=== PATIENT | male | born 1950 | race Caucasian/White ===

== ENCOUNTER 2022-05-06 10:13 | Emergency (ER) | payer MEDICARE, BC, SELFPAY ==
[2022-05-06] VITALS (39 sets, daily range): BP systolic 126–171; BP diastolic 65–98; PULSE 67–85; RESP 12–26; TEMP 36.8; O2SAT 85–99; BMI 24.3
--- NOTE | 2022-05-06 10:17 | CT_ITS ---
WS: [id number] CT HEAD TECHNIQUE: Noncontrast CT of the head obtained from the skullbase to the vertex. CLINICAL INFORMATION: AMS COMPARISON: None. DLP: 1106.[address] scans at [facility] use at least one of these dose optimization techniques: automated e xposure control; mA and/or kV adjustment per patient size (includes targeted exams where dose is matc hed to clinical indication); or iterative reconstruction. FINDINGS: No evidence of intracranial hemorrhage or mass effect. Ventricular system and basal cisterns are sánchez nt. Mild small vessel changes with mild parenchymal volume loss. Encephalomalacia in the bilateral in ferior frontal lobes likely due to prior trauma. Vascular calcification. Slight encephalomalacia RIGHT greater than LEFT anterior temporal lobes also likely due to prior trau ma. Paranasal sinuses and mastoid air cells are well aerated. .Normal visualized soft tissues. CT/CT head wo con* [id number] IMPRESSION: 1. No evidence of intracranial hemorrhage or mass effect. 2. Mild small vessel changes. Mild parenchymal volume loss. 3. Chronic encephalomalacia in the anterior temporal lobes bilaterally RIGHT g reater than LEFT and inferior frontal lobes likely due to prior trauma. 4. No acute intracranial findings.
--- NOTE | 2022-05-06 10:17 | XR_ITS ---
WS: [id number] Exam: XR chest 1V portable [id number] Date/Time of Exam: 05/06/2022 10:17 AM Reason For Exam: dyspnea/cough No priors. Findings: The lungs are clear and fully expanded. Costophrenic angles are sharp. No infiltrates. Bronchovascula r relief appears normal. Cardiac silhouette is unremarkable. Bony elements are intact. XR/XR chest 1V portable [id number] IMPRESSION: Unremarkable chest radiograph.
[2022-05-06 10:44] LABS: Basophils % 0.4 %; Eosinophils # 0.1 10^3/uL (0.0-0.8); Eosinophils % 1.1 %; Hematocrit 37.6 % (42.0-52.0); Hemoglobin 12.4 g/dL (11.7-16.6); Lymphocytes # 0.5 10^3/uL (0.8-4.8); Mean Platelet Volume 8.9 fL (7.4-10.4); Monocytes # 0.5 10^3/uL (0.2-0.9); Monocytes % 4.8 %; Neutrophils # 8.26 10^3/uL (1.8-7.7); Neutrophils % 88.5 %; Nucleated Red Blood Cells % 0 %; Platelet Count 347 10^3/cmm (130-400); Red Blood Count 4.13 10^6/uL (4.1-5.3); Red Cell Distribution Width 11.6 % (12.1-15.1); White Blood Count 9.3 10^3/uL (4.0-10.0)
[2022-05-06 10:46] LABS: ABG PCO2 48.9 mmHg (35-45); ABG PH Result 7.42 (7.35-7.45); Arterial Blood Gas Hematocrit 40.4 % (42-52); Base Excess ABG 5.7 mmol/L (-2.0-2.0); Blood Gas Allen Test Pos; Blood Gas Sample Type Arterial; HCO3 ABG 31.4 mmol/L (22-26); HGB O2 Sat 93.7 % (95-100); Ionized Calcium Level - ABG 1.3 mmol/L (1.1-1.4); Methemoglobin 0.3 % (0.4-1.5); Oxygen Saturation ABG 94.9; PO2 ABG 74.1 mmHg (80.0-100.0); Potassium Level - ABG 4.5 mmol/L (3.5-5.0); Total Hemoglobin 13.2 g/dL (14-18)
--- NOTE | 2022-05-06 10:46 | W.ED.AMS ---
HPI - Altered Mental Status General: Chief Complaint: Altered Mental Status Stated Complaint: AMS Time Seen by Provider: 05/06/22 10:14 Source: family Mode of arrival: EMS History of Present Illness: 71-year-old male presents emergency room with altered mental status. He recently was [facility]: Old records we obtained later had a similar presentation there is no acute medical condition is felt to be Dr. cognitive changes and dementia he was admitted to the geriatric psych unit and after 6 days discharged home with the . Since going home he has not done any better and she is having difficult time managing him they contacted EMS to have him reevaluated today. On arrival here he is not able to contribute any to history but he has no evidence of acute pain or problems he denies any chest or abdominal pain. MD complaint: altered mental status and confusion Onset (ago): week(s) Timing confirmed by: spouse Severity: moderate Review of Systems General: Reports: ROS unobtainable due to mental status PFS ED PFSH: Medical History (Updated 05/06/22 @ 13:45 by Bhargav Engle DO) Dementia Social History (Updated 05/06/22 @ 13:45 by Bhargav Engle DO) Smoking and tobacco status: never smoked Alcohol intake: never Physical Exam Const: EXAM LIMITATIONS: altered mental status NUTRITIONAL APPEARANCE: thin ORIENTATION/CONSCIOUSNESS: Yes awake HENMT: COMMON NORMALS: normocephalic and atraumatic HEAD & SCALP: normocephalic and atraumatic Eye: COMMON NORMALS: Equal, round and reactive pupils present, EOMs intact bilaterally, conjunctivae normal and no scleral icterus CONJUNCTIVA: Yes conjunctivae normal PUPIL: Yes Equal, round and reactive pupils present Neck/C-Spine: COMMON NORMALS: full ROM, no lymphadenopathy and no JVD Resp: COMMON NORMALS: normal respiratory effort, No retractions, No use of accessory muscles and clear to auscultation bilaterally AUSCULTATION: clear to auscultation bilaterally Cardio: COMMON NORMALS: no JVD, regular rate and regular rhythm RATE: regular rate RHYTHM: regular rhythm HEART SOUNDS: no murmurs GI: COMMON NORMALS: Normal to inspection, nondistended, normoactive bowel sounds present, Soft to palpation, non-tender, No hepatosplenomegaly present and no masses PALPATION: Yes Soft to palpation, No Tenderness to palpation present (GI), No Guarding due to palpation present (GI) and Yes No hepatosplenomegaly present : COMMON NORMALS: Yes no CVA tenderness BLADDER/KIDNEY EXAM: Yes no CVA tenderness Back/Pelvis: COMMON NORMALS: no CVA tenderness Course Vital Signs: Vital signs: Vital Signs Temperature 98.2 F 05/06/22 10:14 Pulse Rate 74 05/06/22 12:25 Respiratory Rate 17 05/06/22 12:25 Blood Pressure 138/65 05/06/22 12:25 Pulse Oximetry 99 05/06/22 12:25 Oxygen Delivery Me thod 05/06/22 10:58 MDM - Altered Mental Status Medical Decision Making Old records reviewed from [place]. Patient presented with a similar presentation of the low that back was admitted to mental [facility]. Reviewing the discharge summary of it thought she could manage patient at home has not gone well for her at this point from her report today. He does not have any acute medical condition going on at this time suspect he will need a higher level of care. She will follow-up with her primary care doctor to discuss options. No evidence of stroke or infection at this time. Medical Records I reviewed the patient's medical records. Lab Data I reviewed the patient's lab results. 05/06/22 10:36 05/06/22 10:36 Radiology Impressions Chest X-Ray 05/06/22 10:17 IMPRESSION: Unremarkable chest radiograph. Head CT 05/06/22 10:17 IMPRESSION: 1. No evidence of intracranial hemorrhage or mass effect. 2. Mild small vessel changes. Mild parenchymal volume loss. 3. Chronic encephalomalacia in the anterior temporal lobes bilaterally RIGHT greater than LEFT and inferior frontal lobes likely due to prior trauma. 4. No acute intracranial findings. Laboratory Results WBC 9.3 10^3/uL (4.0-10.0) 05/06/22 10:36 RBC 4.13 10^6/uL (4.1-5.3) 05/06/22 10:36 Hgb 12.4 g/dL (11.7-16.6) 05/06/22 10:36 Hct 37.6 % (42.0-52.0) L 05/06/22 10:36 MCV 91.0 fl (80-94) 05/06/22 10:36 MCH 30.0 pg (28.0-34.0) 05/06/22 10:36 MCHC 33.0 g/dL (30.0-36.0) 05/06/22 10:36 RDW 11.6 % (12.1-15.1) L 05/06/22 10:36 Plt Count 347 10^3/cmm (130-400) 05/06/22 10:36 MPV 8.9 fL (7.4-10.4) 05/06/22 10:36 Neut % (Auto) 88.5 % 05/06/22 10:36 Lymph % (Auto) 5.0 % 05/06/22 10:36 [place] % (Auto) 4.8 % 05/06/22 10:36 Eos % (Auto) 1.1 % 05/06/22 10:36 Baso % (Auto) 0.4 % 05/06/22 10:36 Neut # (Auto) 8.26 10^3/uL (1.8-7.7) H 05/06/22 10:36 Lymph # (Auto) 0.5 10^3/uL (0.8-4.8) L 05/06/22 10:36 [place] # (Auto) 0.5 10^3/uL (0.2-0.9) 05/06/22 10:36 Eos # (Auto) 0.1 10^3/uL (0.0-0.8) 05/06/22 10:36 Baso # (Auto) 0.0 10^3/uL (0.0-0.1) 05/06/22 10:36 Nucleated RBC % (auto) 0 % 05/06/22 10:36 Nucleated RBCs # 0.0 /100WBC 05/06/22 10:36 Specimen Type Arterial 05/06/22 10:33 Sample Site Radial, left 05/06/22 10:33 ABG pH 7.42 (7.35-7.45) 05/06/22 10:33 ABG pCO2 48.9 mmHg (35-45) H 05/06/22 10:33 ABG pO2 74.1 mmHg (80.0-100.0) L 05/06/22 10:33 ABG HCO3 31.4 mmol/L (22-26) H 05/06/22 10:33 ABG O2 Saturation 94.9 05/06/22 10:33 ABG Base Excess 5.7 mmol/L (-2.0-2.0) H 05/06/22 10:33 [place] Test Pos 05/06/22 10:33 A-a O2 Gradient 2.0 mmHg (5-10) L 05/06/22 10:33 Hematocrit 40.4 % (42-52) L 05/06/22 10:33 Hgb O2 Saturation 93.7 % (95-100) L 05/06/22 10:33 Carboxyhemoglobin 1.0 %THgb (0.4-20.1) 05/06/22 10:33 Methemoglobin 0.3 % (0.4-1.5) L 05/06/22 10:33 Total Hemoglobin 13.2 g/dL (14-18) L 05/06/22 10:33 Sodium 142.0 mmol/L (131-143) 05/06/22 10:33 Potassium 4.5 mmol/L (3.5-5.0) 05/06/22 10:33 Glucose 111.0 mg/dL (70-115) 05/06/22 10:33 Ionized Calcium 1.3 mmol/L (1.1-1.4) 05/06/22 10:33 O2 Delivery Device Room air 05/06/22 10:33 FiO2 21.0 % 05/06/22 10:33 Foil Cutter ID [place] 05/06/22 10:33 Sodium 140 mmol/L (136-145) 05/06/22 10:36 Potassium 4.1 mmol/L (3.5-5.1) 05/06/22 10:36 Chloride 100 mmol/L (98-107) 05/06/22 10:36 Carbon Dioxide 30 mmol/L (22-29) H 05/06/22 10:36 Anion Gap 14.1 (5-19) 05/06/22 10:36 BUN 28 mg/dL (8-23) H 05/06/22 10:36 Creatinine 0.8 mg/dL (0.7-1.2) 05/06/22 10:36 GFR Calculation Not Reportable 05/06/22 10:36 Glucose 109 mg/dL (65-115) 05/06/22 10:36 Calculated Osmolality 296 mOsm/kg (285-295) H 05/06/22 10:36 Lactic Acid 1.3 mmol/L (0.5-2.2) 05/06/22 10:36 Calcium 9.7 mg/dL (8.5-10.5) 05/06/22 10:36 Total Bilirubin 0.2 mg/dL (0.15-1.2) 05/06/22 10:36 AST 27 U/L (0-40) 05/06/22 10:36 ALT 15 U/L (0-41) 05/06/22 10:36 Alkaline Phosphatase 112 U/L (40-130) 05/06/22 10:36 Creatine Kinase 88 U/L (39-308) 05/06/22 10:36 Troponin T Baseline 12 ng/L (0-15) 05/06/22 10:36 Troponin T 120 Minute 11.14 ng/L (0-15) 05/06/22 12:42 Delta Troponin T -0.96 ABS# (0-10) L 05/06/22 12:42 Total Protein 7.8 g/dL (6.6-8.7) 05/06/22 10:36 Albumin 3.8 g/dL (3.5-5.2) 05/06/22 10:36 Globulin 4.0 g/dL (1.3-4.6) 05/06/22 10:36 Urine Color Yellow (Yellow) 05/06/22 11:32 Urine Appearance Clear (CLEAR) 05/06/22 11:32 Urine pH 5 (5-7) 05/06/22 11:32 Ur Specific [place] 1.020 (1.005-1.030) 05/06/22 11:32 Urine Protein Trace (Negative) 05/06/22 11:32 Urine Glucose (UA) Norm (Normal) 05/06/22 11:32 Urine Ketones 1+ (Negative) H 05/06/22 11:32 Urine Blood Neg (Negative) 05/06/22 11:32 Urine Nitrate Negative (Negative) 05/06/22 11:32 Urine Bilirubin Neg (Negative) 05/06/22 11:32 Urine Urobilinogen Norm mg/dL (Negative) 05/06/22 11:32 Ur Leukocyte Esterase Negative (Negative) 05/06/22 11:32 Urine RBC None /hpf (0-2) 05/06/22 11:32 Urine WBC 0-4 /hpf (0-5) H 05/06/22 11:32 Ur Squamous Epith Cells None /hpf (0-5) 05/06/22 11:32 Amorphous Sediment Trace /hpf 05/06/22 11:32 Urine Bacteria Trace /hpf (NONE) 05/06/22 11:32 Hyaline Casts 5-10 /lpf H 05/06/22 11:32 Urine Mucus 1+ /hpf 05/06/22 11:32 Serum Ketones Negative (Negative) 05/06/22 10:36 Discharge Plan Discharge Patient Disposition: Home Clinical Impression: Dementia Condition: Stable Prescriptions: No Action sertraline 100 mg tablet 100 mg PO BID amlodipine 5 mg tablet 5 mg PO BID levothyroxine 100 mcg tablet 100 mcg PO DAILY fluticasone propionate 50 mcg/actuation spray,suspension 1 spray INTRANASAL DAILY bupropion HCl 150 mg tablet extended release 24 hr 150 mg PO BID metoprolol tartrate 25 mg tablet 25 mg PO BID mirtazapine 7.5 mg tablet 7.5 mg PO BEDTIME Discharge Orders: Discharge ED (Routine); Ordered 05/06/22 Ordered By: Bhargav Engle Referrals: Caleb Nava MD [Primary Care Provider] - Discharge Diet: Usual diet Discharge Activity: Increase activity as tolerated Patient Instructions: Opioid Safety, Pain Management Activity Restrictions/Additional Instructions: You were seen today for altered mental status. After reviewing his records from [facility] admission appears to have similar presentation laboratory and imaging studies done here were unremarkable. You may need a higher level [facility] this is a retirement to meet your care needs. At this time there is no emergent medical condition. Recommend you follow-up with your primary care doctor for consideration of retirement placement. Coding Level of Care Code ED Industrial Electrical Engineer for Jalil Luu
[2022-05-06 10:47] LABS: Blood Gas Operator Identificat MONRO; Blood Gas Sample Site Radial, left; Oxygen Device ROOM AIR
[2022-05-06 10:57] LABS: Ketone (Acetest) Serum Negative (Negative)
[2022-05-06 11:03] LABS: Alanine Aminotransferase 15 U/L (0-41); Albumin Level 3.8 g/dL (3.5-5.2); Alkaline Phosphatase 112 U/L (40-130); Anion Gap 14.1 (5-19); Aspartate Amino Transferase 27 U/L (0-40); Blood Urea Nitrogen 28 mg/dL (8-23); Calcium 9.7 mg/dL (8.5-10.5); Carbon Dioxide 30 mmol/L (22-29); Chloride 100 mmol/L (98-107); Creatine Phosphokinase 88 U/L (39-308); Creatinine Clr Calc Pharmacy 88.1219; Glucose 109 mg/dL (65-115); Lactic Sepsis W/Reflex 1.3 mmol/L (0.5-2.2); Osmolality Calculated 296 mOsm/kg (285-295); Potassium 4.1 mmol/L (3.5-5.1); Sodium 140 mmol/L (136-145); Total Bilirubin 0.2 mg/dL (0.15-1.2); Total Protein 7.8 g/dL (6.6-8.7)
--- NOTE | 2022-05-06 11:03 | ECG_ITS ---
[facility] Test Date: 2022-05-06 Pat Name: Dave Read Department: Room: Gender: Male Steel Roller: : 1950 Requested By: Bhargav Holt Order Number: [id number] Aditya MD: Alejandro Araujo M.D. Measurements Intervals [place] Rate: 75 P: 73 [place]: 143 QRS: 31 QRSD: 87 T: 60 QT: 358 QTc: 402 Interpretive Statements SINUS RHYTHM No previous ECG available for comparison Electronically Signed On 05-06-2022 17:36:08 PUBLIC POLICY COORDINATOR by Alejandro Araujo M.D. [id number]
[2022-05-06 11:16] LABS: Troponin(5th) Baseline 12 ng/L (0-15)
[2022-05-06 11:50] LABS: Bilirubin Urine Neg (Negative); Blood Urine Neg (Negative); Glucose Urine UA Norm (Normal); Ketones Urine 1+ (Negative); Leukocyte Esterase Urine Negative (Negative); Nitrate Urine Negative (Negative); Protein Urine Trace (Negative); Urine Appearance Clear (CLEAR); Urine Color Yellow (Yellow); Urobilinogen Urine Norm (Negative); pH Urine 5 (5-7)
[2022-05-06 11:51] LABS: Add Urine Microscopic? YES; Amorphous Sediment Urine TRACE /hpf; Bacteria Urine TRACE /hpf; Mucus Urine 1+ /hpf; WBC Urine 0-4 /hpf (0-5)
[2022-05-06 11:53] LABS: Add Urine Culture? No
--- NOTE | 2022-05-06 12:17 | ECG_ITS ---
[facility] Test Date: 2022-05-06 Pat Name: Dave Read Department: Room: Gender: Male Coffee Taster: : 1950 Requested By: Bhargav Holt Order Number: [id number] Aditya MD: Alejandro Araujo M.D. Measurements Intervals [place] Rate: 79 P: 73 [place]: 156 QRS: 54 QRSD: 94 T: 67 QT: 357 QTc: 410 Interpretive Statements SINUS RHYTHM No previous ECG available for comparison Electronically Signed On 05-06-2022 17:39:39 AUTOMOTIVE DRIVABILITY TECHNICIAN by Alejandro Araujo M.D. [id number]
[2022-05-06 13:07] LABS: Troponin 5 2HR 11.14 ng/L (0-15)
[2022-05-06 13:22] LABS: Troponin 5 2HR Delta -0.96 ABS# (0-10)
== END 2022-05-06 14:15 | disposition home or self-care (01) ==
PROVIDERS: Emergency Provider Family Medicine; PCP Pediatrics
DX: F03.90 Unspecified dementia, unspecified severity, without behavioral disturbance, psychotic disturbance, mood disturbance, and anxiety (principal); G93.89 Other specified disorders of brain
CPT/HCPCS: 36415; 36600; 70450; 71045; 80051; 80053; 81001; 82009; 82330; 82550; 82805; 83605; 84484; 85025; 93005; 99285

== ENCOUNTER 2022-06-05 21:14 | Inpatient (IN) | payer MEDICARE, BC, SELFPAY ==
[2022-06-05 21:15] VITALS: BP 128/67; PULSE 105; RESP 18; O2SAT 95; BMI 21.6
--- NOTE | 2022-06-05 21:19 | XRR_ITS ---
PROCEDURE INFORMATION: Exam: XR Chest Exam date and time: 06/05/2022 9:54 PM Age: 71 years old Clinical indication: Shortness of breath; Additional info: Choking TECHNIQUE: Imaging protocol: Radiologic exam of the chest. Views: 1 view. COMPARISON: CR XR chest 1V portable [id number] 05/06/2022 10:31 AM FINDINGS: Lungs: Minimal left lower lobe atelectasis versus early infiltrate. Pleural spaces: Unremarkable. No pleural effusion. No pneumothorax. Heart/Mediastinum: Unremarkable. No cardiomegaly. Bones/joints: Unremarkable. XR/XR chest 1V portable [id number] IMPRESSION: Minimal left lower lobe atelectasis versus early infiltrate.
--- NOTE | 2022-06-05 21:20 | ED_ITS ---
HPI - General Adult General: Chief complaint: Airway/Esophagus Foreign Body Stated complaint: CHOKING EPISODE Time Seen by Provider: 06/05/22 21:17 Source: patient and EMS Mode of arrival: EMS Limitations: no limitations History of Present Illness: 71-year-old male states he was eating a meal tonight states that he had a choking episode and almost passed out during the choking episode he does have a history of throat cancer and has had some dysphagia in the past this happened roughly 30 minutes ago states he feels much improved he does not state like he has anything stuck he did drink some water at home as well. He denies any pain anywhere. Associated symptoms: Deny chest pain, dyspnea, headache(s), nausea, rash or vomiting Review of Systems Const: Denies: fever(s), chills, body aches or change in appetite Eyes: Denies: blurry vision or eye discomfort ENMT: Denies: throat pain or dental pain Card: Denies: chest pain Resp: Denies: dyspnea GI: Denies: abdominal pain, nausea, vomiting or diarrhea : Denies: dysuria Musc: Denies: neck pain or back pain Skin/Breast: Denies: rash Neuro: Denies: headache(s) Psych: Denies: depression Raf/Lymph: Denies: easy bruising All/Imm: Denies: urticaria PFSH ED PFSH: Medical History Dementia Social History Smoking and tobacco status: never smoked Alcohol intake: never Physical Exam Const: COMMON NORMALS: no acute distress, patient oriented x3 and healthy appearing HENMT: COMMON NORMALS: normocephalic and atraumatic HEAD & SCALP: normocephalic and atraumatic MOUTH: Normal oral and palatal mucosa present THROAT: posterior oropharynx normal Eye: COMMON NORMALS: Equal, round and reactive pupils present and EOMs intact bilaterally PUPIL: Yes Equal, round and reactive pupils present Neck/C-Spine: COMMON NORMALS: full ROM and supple Chest: COMMONS NORMALS: normal inspection of the chest and normal palpation of entire chest wall Resp: COMMON NORMALS: normal respiratory effort, No retractions, No use of accessory muscles and clear to auscultation bilaterally AUSCULTATION: clear to auscultation bilaterally Cardio: COMMON NORMALS: regular rate, regular rhythm and No murmurs present (Cardio) RATE: regular rate RHYTHM: regular rhythm GI: COMMON NORMALS: Normal to inspection, nondistended, normoactive bowel sounds present, Soft to palpation, non-tender and no masses PALPATION: Yes Soft to palpation Extremity: COMMON NORMALS: normal to inspection and full ROM Neuro: COMMON NORMALS: patient oriented x3, moves all extremities and no focal motor deficits Psych: COMMON NORMALS: mental status grossly normal, Normal thought process present and cooperative THOUGHT PROCESS: Normal thought process present Skin: COMMON NORMALS: no rashes or lesions noted and no wounds GENERAL SKIN EXAM: no rashes or lesions noted Course Vital Signs: Vital signs: Vital Signs Pulse Rate 79 06/05/22 23:11 Respiratory Rate 16 06/05/22 23:11 Blood Pressure 113/64 06/05/22 23:11 Pulse Oximetry 92 06/05/22 23:11 Oxygen Delivery Me thod 06/05/22 23:11 Oxygen Flow Rate 2 06/05/22 23:11 MDM - General Adult Medical Decision Making Patient presents here with a choking episode he is also hypoxic he has had a cough believe he has had a previous aspiration this week and x-ray appears to be aspiration pneumonia patient's requiring oxygen at this time will admit for IV antibiotics he is also anemic his blood pressure here has been normal denies any blood in his stools. Lab Data 06/05/22 22:16 06/05/22 22:16 Radiology Impressions Chest X-Ray 06/05/22 21:19 IMPRESSION: Minimal left lower lobe atelectasis versus early infiltrate. Laboratory Results WBC 14.9 10^3/uL (4.0-10.0) H 06/05/22 22:16 RBC 2.63 10^6/uL (4.1-5.3) L 06/05/22 22:16 Hgb 7.9 g/dL (11.7-16.6) L 06/05/22 22:16 Hct 24.0 % (42.0-52.0) L 06/05/22 22:16 MCV 91.3 fl (80-94) 06/05/22 22:16 MCH 30.0 pg (28.0-34.0) 06/05/22 22:16 MCHC 32.9 g/dL (30.0-36.0) 06/05/22 22:16 RDW 13.1 % (12.1-15.1) 06/05/22 22:16 Plt Count 278 10^3/cmm (130-400) 06/05/22 22:16 MPV 8.7 fL (7.4-10.4) 06/05/22 22:16 Neut % (Auto) 90.1 % 06/05/22 22:16 Lymph % (Auto) 2.4 % 06/05/22 22:16 [place] % (Auto) 4.9 % 06/05/22 22:16 Eos % (Auto) 1.9 % 06/05/22 22:16 Baso % (Auto) 0.2 % 06/05/22 22:16 Neut # (Auto) 13.43 10^3/uL (1.8-7.7) H 06/05/22 22:16 Lymph # (Auto) 0.4 10^3/uL (0.8-4.8) L 06/05/22 22:16 [place] # (Auto) 0.7 10^3/uL (0.2-0.9) 06/05/22 22:16 Eos # (Auto) 0.3 10^3/uL (0.0-0.8) 06/05/22 22:16 Baso # (Auto) 0.0 10^3/uL (0.0-0.1) 06/05/22 22:16 Nucleated RBC % (auto) 0 % 06/05/22 22:16 Nucleated RBCs # 0.0 /100WBC 06/05/22 22:16 Sodium 134 mmol/L (136-145) L 06/05/22 22:16 Potassium 4.1 mmol/L (3.5-5.1) 06/05/22 22:16 Chloride 97 mmol/L (98-107) L 06/05/22 22:16 Carbon Dioxide 29 mmol/L (22-29) 06/05/22 22:16 Anion Gap 12.1 (5-19) 06/05/22 22:16 BUN 21 mg/dL (8-23) 06/05/22 22:16 Creatinine 0.7 mg/dL (0.7-1.2) 06/05/22 22:16 GFR Calculation Not Reportable 06/05/22 22:16 Glucose 114 mg/dL (65-115) 06/05/22 22:16 Calculated Osmolality 282 mOsm/kg (285-295) L 06/05/22 22:16 Calcium 8.6 mg/dL (8.5-10.5) 06/05/22 22:16 Total Bilirubin 0.3 mg/dL (0.15-1.2) 06/05/22 22:16 AST 20 U/L (0-40) 06/05/22 22:16 ALT 11 U/L (0-41) 06/05/22 22:16 Alkaline Phosphatase 67 U/L (40-130) 06/05/22 22:16 NT-Pro-B Natriuret Pep 479 pg/mL (0-125) H 06/05/22 22:16 Total Protein 6.4 g/dL (6.6-8.7) L 06/05/22 22:16 Albumin 3.2 g/dL (3.5-5.2) L 06/05/22 22:16 Globulin 3.2 g/dL (1.3-4.6) 06/05/22 22:16 Discharge Plan Discharge Patient Disposition: Admitted As Inpatient Clinical Impression: Pneumonia, Anemia Condition: Stable Coding Level of Care Code ED Traveling Electrician for Jalil Luu
[2022-06-05 21:24] VITALS: BP 128/67; PULSE 74; RESP 20; O2SAT 91
[2022-06-05 22:38] LABS: Basophils % 0.2 %; Eosinophils # 0.3 10^3/uL (0.0-0.8); Eosinophils % 1.9 %; Hemoglobin 7.9 g/dL (11.7-16.6); Lymphocytes # 0.4 10^3/uL (0.8-4.8); Lymphocytes % 2.4 %; Mean Corpuscular HGB Conc 32.9 g/dL (30.0-36.0); Mean Corpuscular Volume 91.3 fl (80-94); Mean Platelet Volume 8.7 fL (7.4-10.4); Monocytes # 0.7 10^3/uL (0.2-0.9); Monocytes % 4.9 %; Neutrophils # 13.43 10^3/uL (1.8-7.7); Neutrophils % 90.1 %; Nucleated Red Blood Cells % 0 %; Platelet Count 278 10^3/cmm (130-400); Red Blood Count 2.63 10^6/uL (4.1-5.3); Red Cell Distribution Width 13.1 % (12.1-15.1); White Blood Count 14.9 10^3/uL (4.0-10.0)
[2022-06-05 23:00] LABS: Alanine Aminotransferase 11 U/L (0-41); Albumin Level 3.2 g/dL (3.5-5.2); Alkaline Phosphatase 67 U/L (40-130); Anion Gap 12.1 (5-19); Aspartate Amino Transferase 20 U/L (0-40); Blood Urea Nitrogen 21 mg/dL (8-23); Calcium 8.6 mg/dL (8.5-10.5); Carbon Dioxide 29 mmol/L (22-29); Chloride 97 mmol/L (98-107); Globulin 3.2 g/dL (1.3-4.6); Glucose 114 mg/dL (65-115); NT Pro B Type Natriuretic Pept 479 pg/mL (0-125); Osmolality Calculated 282 mOsm/kg (285-295); Potassium 4.1 mmol/L (3.5-5.1); Sodium 134 mmol/L (136-145); Total Bilirubin 0.3 mg/dL (0.15-1.2); Total Protein 6.4 g/dL (6.6-8.7)
[2022-06-05] MEDS: piperacillin-tazobactam 3.375 GM in sodium chloride 0.9% (plus) 50 ML IV (23:09)
[2022-06-05 23:11] VITALS: BP 113/64; PULSE 79; RESP 16; O2SAT 92
[2022-06-05 23:58] VITALS: BP 115/71; PULSE 70; RESP 16; O2SAT 96
[2022-06-06] VITALS (10 sets, daily range): BP systolic 118–134; BP diastolic 54–70; PULSE 66–90; RESP 14–18; TEMP 36.4–36.8; O2SAT 91–100
[2022-06-06] MEDS: vancomycin 1,000 MG in sodium chloride 0.9% 250 ML 250 MG IV (00:16)
--- NOTE | 2022-06-06 02:02 | P.HP_ITS ---
Providers/Chief Complaint Admitting Physician: Justyn Rivera Primary Care Provider: Caleb Nava MD Chief Complaint: CHOKING EPISODE History of Present Illness Pleasant 71-year-old gentleman, currently sleeping, somnolent, but does wake up after well, with history of throat cancer with history of resection and reconstruction, reports chemoradiation, came into ER after an episode of choking after eating oatmeal, became diaphoretic and nearly passed out, currently reports feeling better. Breathing has improved, denies any sensation of foreign body in throat or lungs. He is not a very good historian, initially did not remember having had cancer, but recalls that after a while. In ER he was noted newly requiring 2 L of oxygen with saturation down in 80s initially, currently in low 90s on 2 L. Not normally on oxygen. He is afebrile, without tachycardia. Noted leukocytosis 14.9. Additionally noted acute anemia 7.9. She denies having any overt bleeding, no other black stools, no hematochezia, no hematuria. Infrequent NSAID use. States never had upper or lower endoscopy. I am not sure how reliable his history is with dementia. His family is not currently with him, most history obtained from ER staff and documentation. Review of Systems Const: Denies: fever(s), chills, body aches or malaise ENMT: Denies: throat pain or ear or mastoid pain Card: Reports: pre-syncope (While choking); Denies: chest pain, edema or dyspnea on exertion Resp: Denies: dyspnea, productive cough or hemoptysis GI: Denies: abdominal pain, nausea, vomiting, diarrhea, constipation, hematochezia or melena : Denies: hematuria Skin/Breast: Denies: rash Neuro: Denies: headache(s) Medications/Allergies Home Medications Medication Instructions Recorded Confirmed Last Taken Type amlodipine 5 mg tablet 5 mg PO BID 05/06/22 06/06/22 06/05/22 20:00 History bupropion HCl 150 mg 24 hr tablet, 150 mg PO BID 05/06/22 05/06/22 05/06/22 History extended release fluticasone propionate 50 1 spray intranasal DAILY 05/06/22 05/06/22 Unknown History mcg/actuation nasal spray,suspension levothyroxine 100 mcg tablet 100 mcg PO DAILY 05/06/22 06/06/22 06/05/22 06:00 History metoprolol tartrate 25 mg tablet 25 mg PO BID 05/06/22 06/06/22 06/05/22 20:20 History mirtazapine 7.5 mg tablet 7.5 mg PO BEDTIME 05/06/22 06/06/22 06/05/22 20:00 History sertraline 100 mg tablet 100 mg PO DAILY 05/06/22 06/06/22 06/05/22 08:00 History olanzapine 5 mg tablet 5 mg PO BID 06/06/22 06/06/22 06/05/22 20:00 History Allergies Allergy/AdvReac Type Severity Reaction Status Date / Time No Known Allergies Allergy Verified 06/05/22 21:20 PFSH Acute PFSH: Medical History Dementia Hypothyroidism Throat cancer Surgical History History of throat surgery Social History Smoking and tobacco status: never smoked Alcohol intake: never Substance/Drug Use: never Household members: spouse Marital status: Vitals/I&O/Wt Last Vital Signs Temp 97.9 F 06/06/22 00:44 Pulse 66 06/06/22 00:44 Resp 17 06/06/22 00:44 BP 118/54 06/06/22 00:44 Pulse Ox 92 06/06/22 00:44 O2 Del Method 06/05/22 23:11 O2 Flow Rate 2 06/05/22 23:11 06/05/22 06/05/22 06/06/22 14:59 22:59 06:59 Intake Total 300 / 300 Balance 300 / 300 Weight last 48 hrs Weight 58.967 kg Physical Exam Narrative: Sleeping, wakes up to voice. Const: GENERAL APPEARANCE: cooperative and diaphoretic HENMT: COMMON NORMALS: oropharynx normal Neck/C-Spine: COMMON NORMALS: no JVD Resp: COMMON NORMALS: clear to auscultation bilaterally AUSCULTATION: clear to auscultation bilaterally Cardio: COMMON NORMALS: no JVD, regular rhythm, S1 normal heart sound present, S2 normal heart sound present and No murmurs present (Cardio) RHYTHM: regular rhythm HEART SOUNDS: S1 normal heart sound present and S2 normal heart sound present GI: COMMON NORMALS: Normal to inspection, nondistended, normoactive bowel sounds present, Soft to palpation and non-tender PALPATION: Yes Soft to palpation Extremity: COMMON NORMALS: no joint enlargement and no pedal edema Neuro: COMMON NORMALS: patient oriented x3 and moves all extremities SENSORIUM/ORIENTATION: Yes alert Skin: COMMON NORMALS: no rashes or lesions noted GENERAL SKIN EXAM: no rashes or lesions noted Data 06/05/22 22:16 06/05/22 22:16 Micro: Microbiology 06/05/22 23:31 Blood Culture - Preliminary Blood SPECIMEN COLLECTED 06/05/22 23:29 Blood Culture - Preliminary Blood SPECIMEN COLLECTED A&P Assessment and plan (1) Pneumonia: Aspiration pneumonia, recurrent aspiration. New hypoxia with hypoxic respiratory failure on presentation saturation in the 80s reported by ER physician, currently requiring nearly 2 L of nasal cannula support. Prior history of laryngeal cancer, resection and reconstruction. Aspiration pneumonia with risk of further aspiration. N.p.o. for now until ST evaluation. Zosyn Oxygen support, wean down as tolerating. Flutter valve, hypertonic saline nebs, RT assess and treat. WBC 14.9. Initial tachycardia 105, but improved. (2) Acute anemia: Acute normocytic anemia without overt bleed recently. Hemoglobin down to 7.9. Denies hematochezia or melena, no hematuria. Never had endoscopy. Prior hemoglobin noted back in April was 12.4. Seldom uses NSAIDs. PPI 40 mg IV twice daily. Hemoccult. Hold NSAIDs. Only SCD for DVT prophylaxis. CBC for repeat blood counts requested. Iron studies. B12, folic acid. TSH. Consideration of endoscopic evaluation. Plan Hypothyroidism Risk comorbidity without his usual medications, but decision to hold for now due to risk of additional life-threatening aspiration until further assessment. Resume home medications once able to restart oral intake. Attestations Medical Necessity Statement*: Admission over 2 midnights anticipated for assessment and management of pneumonia with new hypoxia, aspiration pneumonia and Nudelman with risk of recurrence of aspiration with history of laryngeal cancer, resection and reconstruction, as well as acute anemia with near hemoglobin decreased compared to 1 month ago. Diagnoses Pneumonia J18.9 Acute anemia D64.9
[2022-06-06] MEDS: heparin 5,000 unit/mL INJ 1 mL 5000 UNIT SUBCUT (02:27)
[2022-06-06] MEDS: pantoprazole 40 mg SDV IVP ×2 (02:27→14:30)
[2022-06-06 03:23] LABS: Ferritin 110 ng/mL (30-400); Iron 19 ug/dL (59-158); Percent Saturation 7.7 % (20-50); Thyroid Stimulating Hormone 2.51 uIU/mL (0.27-4.20); Total Iron Binding Capacity 246 mcg/dl; Unsaturated Iron Binding 227 ug/dL (112-347); Vitamin B12 660 pg/mL (232-1245)
[2022-06-06 03:25] LABS: Folate Level 15.2 ng/mL (4.5-32.2)
[2022-06-06] MEDS: piperacillin-tazobactam 3.375 GM in sodium chloride 0.9% (plus) 50 ML IV ×2 (06:23→15:20)
[2022-06-06] MEDS: sodium chloride 3.5% neb 4 mL Neb INHALATION ×2 (08:32→20:39)
[2022-06-06] MEDS: sertraline 100 mg Tablet PO (08:45)
--- NOTE | 2022-06-06 11:08 | FL_ITS ---
WS: [id number] MODIFIED BARIUM SWALLOW TECHNIQUE: Modified barium swallow with speech therapy using multiple consistencies. FLUOROSCOPY TIME: 2min [id number] # of spot films: 0 CLINICAL INFORMATION: Oropharyngeal dysphagia COMPARISON: None. FINDINGS: Multiple consistencies utilized. Penetration with a small amount of aspiration with thin liquids and honey consistencies. No aspiration with pudding. Chin tuck maneuver was performed. Please see speech therapy note for further details. FL/FL barium swallow modifd [id number] IMPRESSION: 1. Penetration with a small amount of aspiration with thin liquids and honey c onsistencies. 2. No aspiration with the pudding consistency
--- NOTE | 2022-06-06 11:08 | CTR_ITS ---
PROCEDURE INFORMATION: Exam: CT Chest Without Contrast; Diagnostic Exam date and time: 06/06/2022 12:05 PM Age: 71 years old Clinical indication: Dysphagia. Aspiration pneumonia. TECHNIQUE: Imaging protocol: Diagnostic computed tomography of the chest without contrast. Radiation optimization: All CT scans at this facility use at least one of these dose optimization techniques: automated exposure control; mA and/or kV adjustment per patient size (includes targeted exams where dose is matched to clinical indication); or iterative reconstruction. REPORTING DATA: Count of CT and Cardiac NM exams in prior 12 months: This patient has received 2 known CTs and 0 known cardiac nuclear medicine studies in the 12 months prior to the current study. COMPARISON: CR XR chest 1V portable [id number] 06/05/2022 9:54 PM RADIATION DOSE METRICS: Total DLP (mGy-cm): 165.1 FINDINGS: Lungs: There is subsegmental atelectasis and/or scarring at the lung bases. There are patchy ground-glass opacities in the chest bilaterally suspicious for developing pneumonia. Solid pulmonary nodule in the right upper lobe measuring 4.9 mm (image 28). Solid pulmonary nodule in the right lower lobe measuring 8.4 mm (image 38). There are additional smaller micro nodules. No pulmonary mass. Pleural spaces: No pleural effusion. No pneumothorax. Heart: No pericardial effusion. Coronary arteries: Coronary arterial calcifications are noted. Lymph nodes: A subcarinal lymph node measures 1.0 x 1.3 cm. Vasculature: No thoracic aortic aneurysm. Diaphragm: No hiatal hernia. Gallbladder and bile ducts: The common bile duct appears dilated measuring up to 8.5 mm. Recommend ultrasound to further assess. Bones/joints: No acute fracture is seen. Soft tissues: The pectoralis major muscle on the right appears absent. CT/CT chest wo con [id number] IMPRESSION: 1. Patchy ground-glass opacities in the chest bilaterally suspicious for developing pneumonia. 2. Solid pulmonary nodules measuring up to 8.4 mm. As per Fleischner Society 2017 guidelines for follow-up and management of pulmonary nodules: For patients at low risk (minimal or absent history of smoking and of other known risk factors), recommend CT at 3-6 months, then consider CT at 18-24 months. For patient at high risk (history of smoking or of other known risk factors), recommend CT at 3-6 months, then CT at 18-24 months. 3. The common bile duct appears dilated measuring up to 8.5 mm. Recommend ultrasound to further assess.The common bile duct appears dilated measuring up to 8.5 mm. Recommend ultrasound to further assess. 4. Mild mediastinal lymphadenopathy. 5. Coronary artery disease.
--- NOTE | 2022-06-06 11:08 | CTR_ITS ---
PROCEDURE INFORMATION: Exam: CT Neck Without Contrast Exam date and time: 06/06/2022 12:02 PM Age: 71 years old Clinical indication: Dysphagia / difficulty swallowing; Prior surgery; Surgery date: 6+ months; Additional info: H/o laryngeal CA post SX and chemoradiation TECHNIQUE: Imaging protocol: Computed tomography of the neck without contrast. Radiation optimization: All CT scans at this facility use at least one of these dose optimization techniques: automated exposure control; mA and/or kV adjustment per patient size (includes targeted exams where dose is matched to clinical indication); or iterative reconstruction. REPORTING DATA: Count of CT and Cardiac NM exams in prior 12 months: This patient has received 2 known CTs and 0 known cardiac nuclear medicine studies in the 12 months prior to the current study. COMPARISON: CT head wo con* [id number] 05/06/2022 11:33 AM RADIATION DOSE METRICS: Total DLP (mGy-cm): 111.8 FINDINGS: Oral cavity: There is chronic denervation pattern in the right side of the tongue with diffuse fatty changes and posterior bulging. Pharynx: Apparent thickening along the posterior wall of the nasopharynx probably represents retained fluid rather than abnormal soft tissue, difficult to evaluate precisely on this noncontrast exam. Linear soft tissue fullness along the right lower lateral wall of the oropharynx adjacent to the resection margin of the mandible with maximal thickness of 1.4 cm (series 4, image 43, series 7, image 57) is indeterminate with no comparison with prior exams. Larynx: Unremarkable. Epiglottis is normal. Prevertebral and retropharyngeal spaces: Unremarkable. Salivary glands: Normal. Glands are normal in size. Thyroid: The right thyroid lobe is very small measuring only 3 mm in thickness with no focal mass. The left thyroid lobe is normal in size. Lymph nodes: Borderline prominent in size left submental lymph node measuring 9 x 8 x 7 mm is nonspecific. No other lymphadenopathy. Trachea: Visualized trachea is unremarkable. Lungs: Unremarkable as visualized. Bones/joints: Status post partial right mandibulectomy (resection of the mandibular ramus and the condyle). About 1.3 cm wide lytic area in the right mandible in the expected location of missing right 2nd mandibular premolar tooth extending to the periapical region of the present right 1st mandibular premolar tooth probably represents chronic odontogenic process (periapical cyst or prior abscess). Soft tissues: There is severe atrophy of the muscles in the right mouth floor (the mylohyoid muscle and the anterior belly of the right jugulodigastric muscle). CT/CT neck wo con [id number] IMPRESSION: No compromise of the airway. Fullness along the posterior wall of the nasopharynx may be due to retained secretions rather than soft tissue mass, incompletely evaluated on this noncontrast exam. Postsurgical changes after right partial mandibulectomy with no reconstructive surgery with no flap reconstruction. Sharply-circumscribed lytic focus in the right side of the residual mandible may be odontogenic in nature associated with periapical granuloma in the right 1st mandibular premolar tooth. Linear soft tissue fullness along the right lateral inferior wall of the oropharynx adjacent to the resection margin of the mandible has to be compared with prior exams to discuss benign postsurgical finding versus recurrent malignancy. A single borderline prominent in size left submental lymph node is indeterminate and may be benign or malignant in nature. 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
[2022-06-06 12:07] LABS: D Dimer 3.03 ug/mIFEU (0-0.59)
[2022-06-06] MEDS: iron sucrose 200 MG in sodium chloride 0.9% (100 ml) 100 ML 220 MG IV (12:30)
[2022-06-07] VITALS (9 sets, daily range): BP systolic 131–176; BP diastolic 64–85; PULSE 80–115; RESP 12–18; TEMP 36.4–36.7; O2SAT 91–98
[2022-06-07] MEDS: piperacillin-tazobactam 3.375 GM in sodium chloride 0.9% (plus) 50 ML IV ×4 (00:36→22:59)
[2022-06-07] MEDS: pantoprazole 40 mg SDV IVP ×2 (02:08→14:39)
[2022-06-07 05:51] LABS: Basophils % 0.5 %; Eosinophils # 0.7 10^3/uL (0.0-0.8); Hematocrit 32.6 % (42.0-52.0); Hemoglobin 10.6 g/dL (11.7-16.6); Lymphocytes # 0.6 10^3/uL (0.8-4.8); Lymphocytes % 6.3 %; Mean Corpuscular HGB Conc 32.5 g/dL (30.0-36.0); Mean Corpuscular Hemoglobin 30.2 pg (28.0-34.0); Mean Corpuscular Volume 92.9 fl (80-94); Mean Platelet Volume 8.2 fL (7.4-10.4); Monocytes # 0.6 10^3/uL (0.2-0.9); Monocytes % 6.2 %; Neutrophils # 6.93 10^3/uL (1.8-7.7); Neutrophils % 78.4 %; Nucleated Red Blood Cells % 0 %; Platelet Count 337 10^3/cmm (130-400); Red Blood Count 3.51 10^6/uL (4.1-5.3); Red Cell Distribution Width 13.1 % (12.1-15.1); White Blood Count 8.8 10^3/uL (4.0-10.0)
[2022-06-07 06:12] LABS: Alanine Aminotransferase 12 U/L (0-41); Albumin Level 3.4 g/dL (3.5-5.2); Alkaline Phosphatase 76 U/L (40-130); Blood Urea Nitrogen 14 mg/dL (8-23); Carbon Dioxide 27 mmol/L (22-29); Chloride 101 mmol/L (98-107); Glucose 79 mg/dL (65-115); Osmolality Calculated 287 mOsm/kg (285-295); Sodium 139 mmol/L (136-145); Total Bilirubin 0.3 mg/dL (0.15-1.2); Total Protein 7.4 g/dL (6.6-8.7)
[2022-06-07 06:13] LABS: Anion Gap 15.3 (5-19)
[2022-06-07 06:14] LABS: Aspartate Amino Transferase 24 U/L (0-40); Potassium 4.3 mmol/L (3.5-5.1)
[2022-06-07] MEDS: sodium chloride 3.5% neb 4 mL Neb INHALATION ×2 (08:24→20:54)
[2022-06-07] MEDS: sertraline 100 mg Tablet PO (09:22)
[2022-06-07] MEDS: OLANZapine 5 mg TABLET PO ×2 (12:29→18:06)
[2022-06-07] MEDS: amlodipine 5 mg Tablet PO ×2 (12:29→18:06)
[2022-06-07] MEDS: iron sucrose 200 MG in sodium chloride 0.9% (100 ml) 100 ML IV (14:09)
[2022-06-07] MEDS: sodium chloride 0.9% 1,000 ML 75 ML IV (14:10)
--- NOTE | 2022-06-07 17:09 | PM.PN ---
Subjective Subjective: No acute vents overnight. Seen with family at bedside. Patient remains hemodynamically stable and afebrile. Walking around the hallway with . Denies any headache, nausea vomiting, difficulty breathing or chest pain. Vitals/I&O/Wt Last Vital Signs Temp 97.7 F 06/07/22 16:21 Pulse 92 06/07/22 16:21 Resp 14 06/07/22 16:21 BP 148/81 06/07/22 16:21 Pulse Ox 92 06/07/22 16:21 O2 Del Method 06/07/22 16:21 O2 Flow Rate 2 06/06/22 08:23 06/07/22 06/07/22 06/07/22 06:59 14:59 22:59 Intake Total 50 / 260 160 / 160 Balance 50 / 260 160 / 160 Weight last 48 hrs Weight 58.967 kg Physical Exam Const: COMMON NORMALS: patient oriented x3 and alert GENERAL APPEARANCE: cooperative and diaphoretic HENMT: COMMON NORMALS: oropharynx normal Neck/C-Spine: COMMON NORMALS: no JVD Resp: COMMON NORMALS: clear to auscultation bilaterally AUSCULTATION: clear to auscultation bilaterally Cardio: COMMON NORMALS: no JVD, regular rhythm, S1 normal heart sound present, S2 normal heart sound present and No murmurs present (Cardio) RHYTHM: regular rhythm HEART SOUNDS: S1 normal heart sound present and S2 normal heart sound present GI: COMMON NORMALS: Normal to inspection, nondistended, normoactive bowel sounds present, Soft to palpation and non-tender PALPATION: Yes Soft to palpation Extremity: COMMON NORMALS: no joint enlargement and no pedal edema Neuro: COMMON NORMALS: patient oriented x3 and moves all extremities SENSORIUM/ORIENTATION: Yes alert Skin: COMMON NORMALS: no rashes or lesions noted GENERAL SKIN EXAM: no rashes or lesions noted Data 06/07/22 05:42 06/07/22 05:42 Micro: Microbiology 06/05/22 23:31 Blood Culture - Preliminary Blood NEGATIVE TO DATE 06/05/22 23:29 Blood Culture - Preliminary Blood NEGATIVE TO DATE A&P Assessment and plan (1) Aspiration pneumonia: Recurrent aspirations. Aspiration pneumonia. Leukocytosis resolved. Patient is on room air. Appreciate CT chest, CT neck results. Appreciate modified barium swallow. As per speech evaluation and modified barium swallow patient is at high risk of aspiration with any consistencies given history of laryngeal cancer. Discussed in detail with the patient and patient's at bedside. Discussed to prevent or decrease the risk of aspiration going forward patient should be on dysphagia level 5-6 diet which we would still keep patient on risk of aspiration versus possible PEG tube placement on which risk would be lower. Both verbalized understanding and agreeable. Want to go ahead with PEG tube placement. We will consult surgery in a.m. tomorrow once they are available for PEG tube placement. Continue NPO. Start with normal saline at 75 cc/h. Patient does have signs of pneumonitis. Less likely pneumonia. For now we will continue with Zosyn. (2) Acute anemia: Acute normocytic anemia without overt bleed recently. Denies hematochezia or melena, no hematuria. Never had endoscopy. Hemoglobin up to 10.6 today. Iron deficiency anemia. Appreciate vitamin B12 folate level. Continue with IV iron supplementation. Continue to monitor hemoglobin daily. (3) History of laryngeal cancer: Plan Please follow-up chronic medication including olanzapine 5 mg twice daily, sertraline and mirtazapine. Hypertension: Goal blood pressure less than 140/90 mmHg. Continue with home dose of amlodipine and metoprolol. Uptitrate as for goal blood pressures. NPO. Full code. Famotidine for PUD prophylaxis Heparin 5000 every 12 hourly for DVT prophylaxis. Attestations Medical Necessity Statement*: Patient requires further hospitalization for management of recurrent aspiration leading to aspiration pneumonia as PEG tube placement is needed in a patient with history of laryngeal cancer post right partial mandibulectomy. Diagnoses Aspiration pneumonia J69.0 Acute anemia D64.9 History of laryngeal cancer Z85.21
[2022-06-07] MEDS: mirtazapine 15 mg Tablet 7.5 MG PO (21:19)
--- NOTE | 2022-06-07 21:32 | PC.NURSE ---
When nurse asked patient how he was doing today, patient expressed to nurse that he was doing poor and that he felt disconnected from his . Nurse attempted to call but got a voice mail. Nurse informed patient of the situation and told him that she would try to contact again. Patient told nurse that his hasn't been very involved in his care, that when she came to the hospital today that she mainly spoke with the doctor and did not speak much with him. Patient stated that he left his phone with his spouse, and doesn't have a way to contact her-- nurse told patient where the phone was and again reiterated that nursing staff would keep attempting to get ahold of spouse.
--- NOTE | 2022-06-07 23:52 | PC.NURSE ---
Patient noted to be pacing hallway and patient room, and will not stay in bed or chair for extended periods. When asked if patient wanted something for anxiety or sleep, patient refused.
[2022-06-08] VITALS (7 sets, daily range): BP systolic 103–168; BP diastolic 58–81; PULSE 74–100; RESP 16–19; TEMP 36.5–36.9; O2SAT 90–96
[2022-06-08] MEDS: heparin 5,000 unit/mL INJ 1 mL 5000 UNIT SUBCUT ×2 (01:29→15:30)
[2022-06-08] MEDS: sodium chloride 0.9% 1,000 ML 75 ML IV ×2 (01:29→15:29)
[2022-06-08] MEDS: pantoprazole 40 mg SDV IVP ×2 (01:29→15:30)
--- NOTE | 2022-06-08 01:42 | PC.NURSE ---
Nursing staff witnessed patient leaned over at sink and taking a sip of water. Patient then began to cough. This nurse rounded on patient and asked if patient had been drinking water, and patient denied drinking, stating Maybe they just saw me by the sink. I was not drinking water. Nurse educated patient that she believed him, but if he were to be drinking water, that the water would go straight to his lungs; patient was also educated that he still remains NPO at this time and discussed the risks of not being compliant. Patient verbalized understanding on all teaching.
--- NOTE | 2022-06-08 01:44 | PC.NURSE ---
Due to patient's inability to sit still or maintain a quiet environment, patient has been moved to room 263.
--- NOTE | 2022-06-08 01:45 | PC.NURSE ---
Patient keeps asking for water to drink, despite repeated education from nursing staff that he is still NPO due to aspiration risk.
[2022-06-08 03:50] LABS: Basophils # 0.1 10^3/uL (0.0-0.1); Basophils % 0.5 %; Eosinophils # 0.5 10^3/uL (0.0-0.8); Eosinophils % 5.5 %; Hematocrit 32.9 % (42.0-52.0); Hemoglobin 10.4 g/dL (11.7-16.6); Lymphocytes # 0.7 10^3/uL (0.8-4.8); Lymphocytes % 7.1 %; Mean Corpuscular HGB Conc 31.6 g/dL (30.0-36.0); Mean Corpuscular Hemoglobin 29.9 pg (28.0-34.0); Mean Corpuscular Volume 94.5 fl (80-94); Mean Platelet Volume 8.4 fL (7.4-10.4); Monocytes # 0.8 10^3/uL (0.2-0.9); Monocytes % 7.6 %; Neutrophils # 7.79 10^3/uL (1.8-7.7); Neutrophils % 78.7 %; Nucleated Red Blood Cells % 0 %; Platelet Count 375 10^3/cmm (130-400); Red Blood Count 3.48 10^6/uL (4.1-5.3); Red Cell Distribution Width 13.2 % (12.1-15.1); White Blood Count 9.9 10^3/uL (4.0-10.0)
[2022-06-08 04:15] LABS: Alanine Aminotransferase 13 U/L (0-41); Albumin Level 3.9 g/dL (3.5-5.2); Alkaline Phosphatase 81 U/L (40-130); Anion Gap 15.9 (5-19); Aspartate Amino Transferase 29 U/L (0-40); Blood Urea Nitrogen 17 mg/dL (8-23); Calcium 9.3 mg/dL (8.5-10.5); Carbon Dioxide 28 mmol/L (22-29); Chloride 103 mmol/L (98-107); Glucose 89 mg/dL (65-115); Osmolality Calculated 297 mOsm/kg (285-295); Potassium 3.9 mmol/L (3.5-5.1); Sodium 143 mmol/L (136-145); Total Bilirubin 0.4 mg/dL (0.15-1.2); Total Protein 7.9 g/dL (6.6-8.7)
--- NOTE | 2022-06-08 05:20 | PC.NURSE ---
Nurse rounded on patient and found IV tubing tied off and torn off from patient's IV. When asked if patient had tied it off and cut the tubing, patient stated no. Patient kept moving around in the room and rearranging items throughout room. Patient then began looking for the light overhead his bed, went to the light at the door and tried it; when it didn't work, he began searching for another light but then returned to the one at the door before stating oh I've already tried that. Patient appears to be anxious and confused, however can answer orientation questions appropriately. When this nurse told the patient to stay in his room and stay connected to his IV, patient then stated okay and tried to unplug his IV pump from the wall so he could ambulate in the jordan. Nurse reiterated that he needs to stay in his room because it is still early in the morning, and patient stated okay and now remains leaning against the doorframe half in the hallway.
--- NOTE | 2022-06-08 05:32 | PC.NURSE ---
Nursing staff informed this nurse that the patient was in the hallway and was stating that he was ready to leave. Nursing staff explained to patient that he had to wait for discharge.
--- NOTE | 2022-06-08 05:42 | PC.NURSE ---
Patient was found ambulating jordan and finding a wheelchair to sit in. This nurse told the patient she would help him back to his room; patient then relaxed in his chair and waited for nurse to push him to his room. Nurse told patient to stand and that she would walk him back. Once back in room, patient once again appropriately answers all orientation questions, including name, , the current year, where he is at, and why he is there. Nurse explained to patient that he needed to stay in his room because it was still early in the morning and other people needed to sleep.
[2022-06-08] MEDS: piperacillin-tazobactam 3.375 GM in sodium chloride 0.9% (plus) 50 ML IV ×3 (06:26→22:33)
--- NOTE | 2022-06-08 06:37 | PC.NURSE ---
Once patient finally spoke with on phone, patient is now resting in bed peacefully with chest rise and even respirations noted.
[2022-06-08] MEDS: fluticasone nasal spray 16gm Btl 1 SPRAY INTRANASAL (10:06)
[2022-06-08] MEDS: sertraline 100 mg Tablet PO (10:06)
[2022-06-08] MEDS: OLANZapine 5 mg TABLET PO ×2 (10:06→18:13)
[2022-06-08] MEDS: amlodipine 5 mg Tablet PO ×2 (10:06→18:13)
[2022-06-08] MEDS: metoprolol tartrate 25 mg Tablet PO (12:31)
[2022-06-08] MEDS: iron sucrose 200 MG in sodium chloride 0.9% (100 ml) 100 ML IV (12:43)
[2022-06-08] MEDS: losartan 50 mg Tablet 25 MG PO (12:44)
--- NOTE | 2022-06-08 15:59 | PM.PN ---
Subjective Subjective: No acute events overnight. Seen with at bedside. Denies any nausea, neck, headache. Remains on room air. Blood pressure in the mornings elevated. On review of patient's blood pressures have been elevated since yesterday. Vitals/I&O/Wt Last Vital Signs Temp 98.0 F 06/08/22 12:00 Pulse 90 06/08/22 12:00 Resp 18 06/08/22 12:00 BP 133/66 06/08/22 12:44 Pulse Ox 90 06/08/22 12:00 O2 Del Method 06/08/22 12:00 O2 Flow Rate 2 06/06/22 08:23 06/08/22 06/08/22 06/08/22 06:59 14:59 22:59 Intake Total 898.75 / 1108.75 1050 / 1050 1110 / 2160 Balance 898.75 / 1108.75 1050 / 1050 1110 / 2160 Physical Exam Const: COMMON NORMALS: patient oriented x3 and alert GENERAL APPEARANCE: cooperative and diaphoretic HENMT: COMMON NORMALS: oropharynx normal Neck/C-Spine: COMMON NORMALS: no JVD Resp: COMMON NORMALS: clear to auscultation bilaterally AUSCULTATION: clear to auscultation bilaterally Cardio: COMMON NORMALS: no JVD, regular rhythm, S1 normal heart sound present, S2 normal heart sound present and No murmurs present (Cardio) RHYTHM: regular rhythm HEART SOUNDS: S1 normal heart sound present and S2 normal heart sound present GI: COMMON NORMALS: Normal to inspection, nondistended, normoactive bowel sounds present, Soft to palpation and non-tender PALPATION: Yes Soft to palpation Extremity: COMMON NORMALS: no joint enlargement and no pedal edema Neuro: COMMON NORMALS: patient oriented x3 and moves all extremities SENSORIUM/ORIENTATION: Yes alert Skin: COMMON NORMALS: no rashes or lesions noted GENERAL SKIN EXAM: no rashes or lesions noted Data 06/08/22 03:35 06/08/22 03:35 A&P Assessment and plan (1) Aspiration pneumonia: Recurrent aspirations. Aspiration pneumonia. Leukocytosis resolved. Patient is on room air. Appreciate CT chest, CT neck results. Appreciate modified barium swallow. As per speech evaluation and modified barium swallow patient is at high risk of aspiration with any consistencies given history of laryngeal cancer. Discussed in detail with the patient and patient's at bedside. Discussed to prevent or decrease the risk of aspiration going forward patient should be on dysphagia level 5-6 diet which we would still keep patient on risk of aspiration versus possible PEG tube placement on which risk would be lower. Both verbalized understanding and agreeable. Want to go ahead with PEG tube placement. Surgery consulted for PEG tube placement. Continue NPO. Continue with normal saline at 75 cc/h. Patient does have signs of pneumonitis. Less likely pneumonia. For now we will continue with Zosyn. (2) Acute anemia: Acute normocytic anemia without overt bleed recently. Denies hematochezia or melena, no hematuria. Never had endoscopy. Hemoglobin up to 10.6 today. Iron deficiency anemia. Appreciate vitamin B12 folate level. Continue with IV iron supplementation. Continue to monitor hemoglobin daily. (3) History of laryngeal cancer: Plan Please follow-up chronic medication including olanzapine 5 mg twice daily, sertraline and mirtazapine. Hypertension: Goal blood pressure less than 140/90 mmHg. Blood pressure is elevated. Continue with home dose of amlodipine 5 mg twice daily, metoprolol 25 mg twice daily. Heart rate appreciated. Add losartan 25 mg oral daily. Will uptitrate given goals. NPO. Full code. Protonix for PUD prophylaxis Heparin 5000 every 12 hourly for DVT prophylaxis. Discharge planning: Plan to discharge post PEG tube placement after tube feeds have been started. Again discussed in detail with patient and patient's at bedside further need of PEG tube and all the questions regarding PEG tube were answered. They also had concerns regarding tube feeds post PEG tube placement. All the questions were answered. We will consult dietitian. Attestations Medical Necessity Statement*: Patient requires further hospitalization for management and evaluation of recurrent aspiration in setting of history of laryngeal cancer post mandibulectomy and extensive neck surgery while PEG tube placement is done. Diagnoses Aspiration pneumonia J69.0 Acute anemia D64.9 History of laryngeal cancer Z85.21
[2022-06-09] VITALS (11 sets, daily range): BP systolic 110–136; BP diastolic 57–75; PULSE 65–99; RESP 14–18; TEMP 36.3–36.9; O2SAT 90–98
[2022-06-09 00:48] LABS: Basophils # 0.1 10^3/uL (0.0-0.1); Basophils % 0.5 %; Eosinophils # 0.2 10^3/uL (0.0-0.8); Eosinophils % 1.8 %; Hematocrit 31.6 % (42.0-52.0); Lymphocytes # 0.8 10^3/uL (0.8-4.8); Lymphocytes % 7.2 %; Mean Corpuscular HGB Conc 31.6 g/dL (30.0-36.0); Mean Corpuscular Hemoglobin 30.5 pg (28.0-34.0); Mean Corpuscular Volume 96.3 fl (80-94); Mean Platelet Volume 8.7 fL (7.4-10.4); Monocytes # 0.7 10^3/uL (0.2-0.9); Monocytes % 6.3 %; Neutrophils # 9.13 10^3/uL (1.8-7.7); Neutrophils % 83.8 %; Nucleated Red Blood Cells % 0 %; Platelet Count 322 10^3/cmm (130-400); Red Blood Count 3.28 10^6/uL (4.1-5.3); Red Cell Distribution Width 13.2 % (12.1-15.1); White Blood Count 10.9 10^3/uL (4.0-10.0)
[2022-06-09 01:16] LABS: Alanine Aminotransferase 15 U/L (0-41); Albumin Level 3.3 g/dL (3.5-5.2); Alkaline Phosphatase 71 U/L (40-130); Anion Gap 18.5 (5-19); Aspartate Amino Transferase 31 U/L (0-40); Blood Urea Nitrogen 18 mg/dL (8-23); Calcium 8.8 mg/dL (8.5-10.5); Carbon Dioxide 23 mmol/L (22-29); Chloride 105 mmol/L (98-107); Globulin 3.9 g/dL (1.3-4.6); Glucose 77 mg/dL (65-115); Osmolality Calculated 295 mOsm/kg (285-295); Potassium 4.5 mmol/L (3.5-5.1); Sodium 142 mmol/L (136-145); Total Bilirubin 0.3 mg/dL (0.15-1.2); Total Protein 7.2 g/dL (6.6-8.7)
[2022-06-09] MEDS: pantoprazole 40 mg SDV IVP ×2 (01:27→14:58)
[2022-06-09] MEDS: heparin 5,000 unit/mL INJ 1 mL 5000 UNIT SUBCUT ×2 (01:27→14:56)
[2022-06-09] MEDS: sodium chloride 0.9% 1,000 ML 75 ML IV ×2 (04:26→17:39)
[2022-06-09] MEDS: piperacillin-tazobactam 3.375 GM in sodium chloride 0.9% (plus) 50 ML IV ×3 (06:21→22:34)
--- NOTE | 2022-06-09 08:54 | PC.NUTR ---
Addendum entered and electronically signed by Carolyn Badillo 06/09/22 09:59: Recommend home feeding regimen to be the same schedule but with Jevity 1.5 instead of Jevity 1.2 and 60 cc flushes before and after feeding. 8am: 240 cc (1 carton) noon: 240cc (1 carton) 4pm: 240 cc (1 carton) 8pm: 480cc (2 cartons) Original Note: PEG TF consult received. When appropriate, recommend Jevity 1.2, with 60cc fresh water flush before and after feedings, per following schedule: 8am: 120cc day 1, with goal of 240cc as tolerated Noon: 120cc day 1, with goal of 240cc as tolerated 4pm: 120cc day 1, with goal 240cc as tolerated 8pm: 120cc day 1, with goal 480cc as tolerated Details in RD assessment.
[2022-06-09] MEDS: fluticasone nasal spray 16gm Btl 1 SPRAY INTRANASAL (10:10)
[2022-06-09] MEDS: metoprolol tartrate 1 mg/1 mL SDV 5 mL 5 MG IVP (10:17)
--- NOTE | 2022-06-09 10:26 | P.ANESASSM_ITS ---
Pre-Anesthetic Assessment Height/Weight: Height 1.65 m Weight 58.967 kg Temp Pulse Resp BP Pulse Ox O2 Del Method O2 Flow Rate 98.3 F 92 16 133/73 92 2 06/09/22 03:43 06/09/22 07:28 06/09/22 07:28 06/09/22 07:14 06/09/22 07:28 06/09/22 07:28 06/06/22 08:23 Operation Date: 06/09/22 12:00 Proposed Procedures p PEG Tube Insertion(Not Applicable) - Armin Alexis DO Familial anesthetic complications: None Was Beta Gabriel taken within 24 hours: N/A Was Clonidine taken within 24 hours: N/A Social No alcohol and No tobacco Exam alert, oriented x 3, clear to auscultation bilaterally and regular rate & rhythm Airway Submandibular: within normal limits Cervical ROM: within normal limits Mallampati: Class II Dentition: chipped Comments: Comments: Poor dentition History/ROS No significant history except as noted and No significant complaints Pulmonary None reported CV/HEM None reported None reported Hepatic None reported GI Gastroesophageal Reflux Disease Esophageal cancer Metabolic Thyroid Disease [facility] [place] None reported Neuropsych Neuropathy Anesthetic Plan ASA status: 3 Anesthesia: Anesthesia Evaluation, General and MAC Medications/Allergies Home Medications Medication Instructions Recorded Confirmed Last Taken Type amlodipine 5 mg tablet 5 mg PO BID 05/06/22 06/06/22 06/05/22 20:00 History fluticasone propionate 50 1 spray intranasal DAILY 05/06/22 06/06/22 Unknown History mcg/actuation nasal spray,suspension levothyroxine 100 mcg tablet 100 mcg PO DAILY 05/06/22 06/06/22 06/05/22 06:00 History metoprolol tartrate 25 mg tablet 25 mg PO BID 05/06/22 06/06/22 06/05/22 20:20 History mirtazapine 7.5 mg tablet 7.5 mg PO BEDTIME 05/06/22 06/06/22 06/05/22 20:00 History sertraline 100 mg tablet 100 mg PO DAILY 05/06/22 06/06/22 06/05/22 08:00 History olanzapine 5 mg tablet 5 mg PO BID 06/06/22 06/06/22 06/05/22 20:00 History Allergies Allergy/AdvReac Type Severity Reaction Status Date / Time No Known Allergies Allergy Verified 06/05/22 21:20 Current Medications Generic Name Dose Route Start Last Admin Trade Name Magda PRN Reason Stop Dose Admin Amlodipine Besylate 5 mg 06/07/22 11:00 06/08/22 18:13 Amlodipine 5 Mg Tablet PO 5 mg BID LEATHA Administration Fluticasone Propionate 1 spray 06/08/22 09:00 06/09/22 10:10 Fluticasone Nasal [place] 16gm Btl INTRANASAL 1 spray DAILY LEATHA Administration Heparin Sodium (Porcine) 5,000 unit 06/06/22 02:15 06/09/22 01:27 Heparin 5,000 Unit/Ml Inj 1 Ml SUBCUT 5,000 unit Q12H LEATHA Administration Piperacillin Sod/Tazobactam 50 mls @ 12.5 mls/hr 06/06/22 07:00 06/09/22 06:21 Sod 3.375 gm/ Sodium Chloride IV 12.5 mls/hr Q8H LEATHA Administration Protocol Iron Sucrose 200 mg/ Sodium 110 mls @ 220 mls/hr 06/06/22 12:00 06/08/22 15:40 Chloride IV 06/10/22 12:29 Infused Q24H LEATHA Infusion Sodium Chloride 1,000 mls @ 75 mls/hr 06/07/22 11:45 06/09/22 04:26 Sodium Chloride 0.9% IV 75 mls/hr .[id number] LEATHA Administration Losartan Potassium 25 mg 06/08/22 11:10 06/08/22 12:44 Losartan 50 Mg Tablet PO 25 mg DAILY LEATHA Administration Metoprolol Tartrate 25 mg 06/08/22 11:10 06/08/22 20:55 Metoprolol Tartrate 25 Mg Tablet PO Not Given BID@0900,2100 LEATHA Metoprolol Tartrate 5 mg 06/08/22 20:48 06/09/22 10:17 Metoprolol Tartrate 1 Mg/1 Ml Sdv 5 Ml IVP 5 mg Q6H PRN Administration unable to take po metoprolol Mirtazapine 7.5 mg 06/07/22 21:00 06/08/22 20:55 Mirtazapine 15 Mg Tablet PO Not Given BEDTIME LEATHA Olanzapine 5 mg 06/07/22 11:40 06/08/22 18:13 Olanzapine 5 Mg Tablet PO 5 mg BID LEATHA Administration Pantoprazole Sodium 40 mg 06/06/22 02:15 06/09/22 01:27 Pantoprazole 40 Mg Sdv IVP 40 mg Q12H LEATHA Administration Sertraline HCl 100 mg 06/06/22 09:00 06/08/22 10:06 Sertraline 100 Mg Tablet PO 100 mg DAILY LEATHA Administration PFSH Anesthesia Medical History (Updated 06/07/22 @ 17:15 by Vaibhav Denis MD) Dementia History of laryngeal cancer Hypothyroidism Throat cancer Surgical History (Updated 06/07/22 @ 17:15 by Vaibhav Denis MD) H/O oral surgery History of throat surgery Social History Smoking and tobacco status: never smoked Alcohol intake: never Substance/Drug Use: never Household members: spouse Marital status: Data Anesthesia 06/09/22 00:32 06/09/22 00:32 Short CBC 06/08/22 06/09/22 Range/Units 03:35 00:32 WBC 9.9 10.9 H (4.0-10.0) 10^3/uL Hgb 10.4 L 10.0 L (11.7-16.6) g/dL Hct 32.9 L 31.6 L (42.0-52.0) % MCV 94.5 H 96.3 H (80-94) fl Plt Count 375 322 (130-400) 10^3/cmm Neut % (Auto) 78.7 83.8 % Neut # (Auto) 7.79 H 9.13 H (1.8-7.7) 10^3/uL BMP 06/08/22 06/09/22 03:35 00:32 Sodium 143 142 Potassium 3.9 4.5 Chloride 103 105 Carbon Dioxide 28 23 BUN 17 18 Creatinine 0.8 0.7 Glucose 89 77 Calcium 9.3 8.8 Liver Function 06/08/22 06/09/22 Range/Units 03:35 00:32 Total Bilirubin 0.4 0.3 (0.15-1.2) mg/dL AST 29 31 (0-40) U/L ALT 13 15 (0-41) U/L Alkaline Phosphatase 81 71 (40-130) U/L Albumin 3.9 3.3 L (3.5-5.2) g/dL Cardiac Studies: No Data to Display
[2022-06-09] MEDS: sodium chloride 0.9% 1,000 ML 30 ML IV (10:39)
--- NOTE | 2022-06-09 11:33 | PM.CONSULT ---
Providers/Reason For Consult Consulting Physician/Specialty*: Dr. Armin Alexis, DO/General surgery Reason for Consult*: Aspiration Attending Physician: Vaibhav Denis MD Primary Care Provider: Caleb Nava MD History of Present Illness History of Present Illness Dave Read is a 71 year old male with a history of laryngeal cancer and PEG tube about 25 years ago who is having problems with aspiration. He is requesting a PEG tube for feeding. He does have some dementia. HPI and review of systems are limited secondary to this Review of Systems General: Reports: ROS unobtainable due to medical condition Medications/Allergies Home Medications Medication Instructions Recorded Confirmed Last Taken Type amlodipine 5 mg tablet 5 mg PO BID 05/06/22 06/06/22 06/05/22 20:00 History fluticasone propionate 50 1 spray intranasal DAILY 05/06/22 06/06/22 Unknown History mcg/actuation nasal spray,suspension levothyroxine 100 mcg tablet 100 mcg PO DAILY 05/06/22 06/06/22 06/05/22 06:00 History metoprolol tartrate 25 mg tablet 25 mg PO BID 05/06/22 06/06/22 06/05/22 20:20 History mirtazapine 7.5 mg tablet 7.5 mg PO BEDTIME 05/06/22 06/06/22 06/05/22 20:00 History sertraline 100 mg tablet 100 mg PO DAILY 05/06/22 06/06/22 06/05/22 08:00 History olanzapine 5 mg tablet 5 mg PO BID 06/06/22 06/06/22 06/05/22 20:00 History Allergies Allergy/AdvReac Type Severity Reaction Status Date / Time No Known Allergies Allergy Verified 06/05/22 21:20 Current Medications Generic Name Dose Route Start Last Admin Trade Name Freq PRN Reason Stop Dose Admin Amlodipine Besylate 5 mg 06/07/22 11:00 06/08/22 18:13 Amlodipine 5 Mg Tablet PO 5 mg BID LEATHA Administration Fluticasone Propionate 1 spray 06/08/22 09:00 06/09/22 10:10 Fluticasone Nasal [place] 16gm Btl INTRANASAL 1 spray DAILY LEATHA Administration Heparin Sodium (Porcine) 5,000 unit 06/06/22 02:15 06/09/22 01:27 Heparin 5,000 Unit/Ml Inj 1 Ml SUBCUT 5,000 unit Q12H LEATHA Administration Piperacillin Sod/Tazobactam 50 mls @ 12.5 mls/hr 06/06/22 07:00 06/09/22 06:21 Sod 3.375 gm/ Sodium Chloride IV 12.5 mls/hr Q8H LEATHA Administration Protocol Iron Sucrose 200 mg/ Sodium 110 mls @ 220 mls/hr 06/06/22 12:00 06/08/22 15:40 Chloride IV Infused Q24H LEATHA Infusion Sodium Chloride 1,000 mls @ 75 mls/hr 06/07/22 11:45 06/09/22 04:26 Sodium Chloride 0.9% IV 75 mls/hr .[id number] LEATHA Administration Sodium Chloride 1,000 mls @ 30 mls/hr 06/09/22 10:30 06/09/22 10:39 Sodium Chloride 0.9% IV 06/10/22 10:29 30 mls/hr .Q24H LEATHA Administration Losartan Potassium 25 mg 06/08/22 11:10 06/08/22 12:44 Losartan 50 Mg Tablet PO 25 mg DAILY LEATHA Administration Metoprolol Tartrate 25 mg 06/08/22 11:10 06/08/22 20:55 Metoprolol Tartrate 25 Mg Tablet PO Not Given BID@0900,2100 LEATHA Metoprolol Tartrate 5 mg 06/08/22 20:48 06/09/22 10:17 Metoprolol Tartrate 1 Mg/1 Ml Sdv 5 Ml IVP 5 mg Q6H PRN Administration unable to take po metoprolol Mirtazapine 7.5 mg 06/07/22 21:00 06/08/22 20:55 Mirtazapine 15 Mg Tablet PO Not Given BEDTIME LEATHA Olanzapine 5 mg 06/07/22 11:40 06/08/22 18:13 Olanzapine 5 Mg Tablet PO 5 mg BID LEATHA Administration Pantoprazole Sodium 40 mg 06/06/22 02:15 06/09/22 01:27 Pantoprazole 40 Mg Sdv IVP 40 mg Q12H LEATHA Administration Sertraline HCl 100 mg 06/06/22 09:00 06/08/22 10:06 Sertraline 100 Mg Tablet PO 100 mg DAILY LEATHA Administration PFSH Acute PFSH: Medical History Dementia History of laryngeal cancer Hypothyroidism Throat cancer Surgical History H/O oral surgery History of throat surgery Social History Smoking and tobacco status: never smoked Alcohol intake: never Substance/Drug Use: never Household members: spouse Marital status: Vitals/I&O/Wt Last Vital Signs Temp 98.4 F 06/09/22 10:29 Pulse 72 06/09/22 10:29 Resp 18 06/09/22 10:29 BP 136/75 06/09/22 10:29 Pulse Ox 98 06/09/22 10:29 O2 Del Method 06/09/22 10:29 O2 Flow Rate 2 06/06/22 08:23 06/08/22 06/09/22 06/09/22 22:59 06:59 14:59 Intake Total 1160 / 2210 50 / 2260 Balance 1160 / 2210 50 / 2260 Physical Exam Narrative: General : Patient is well developed , no acute distress Head : Normal cephalic, a-traumatic. Ears : Pinnae and external canal are normal. Hearing is normal. Eyes : PERRLA, Sclera and injection are normal. No conjunctival discharge. Nose : Mucous membranes are without erythema. Throat : buccal mucosa is normal, gums are without significant recession or hypertrophy. Lungs : Equal chest rise bilaterally, no use of accessory muscles, trachea is midline. Cor : Rate and rhythm are normal. Abdomen : Soft, ND, NT, no g/r/m Extremities : No edema, no cyanosis or clubbing, dorsalis pedis pulses are present bilaterally, non-tender to palpation of calves. Upper extremities are normal bilaterally. Back : non-tender to palpation, no CVA tenderness. Data 06/09/22 00:32 06/09/22 00:32 A&P Assessment and plan (1) History of laryngeal cancer: (2) Aspiration pneumonia: Plan PEG tube insertion The risks and benefits of the procedure, including bleeding, infection, intestinal perforation requiring surgery, damage to surrounding structures, missed lesion were explained to the patient and his . The patient is understanding of the risks and wishes to proceed. Coding Level of Care Code Acute Code for Chg Fwd Diagnoses History of laryngeal cancer Z85.21 Aspiration pneumonia J69.0
--- NOTE | 2022-06-09 11:50 | SUR.OPER ---
1 mL Lidocaine used to LUQ prior to PEG tube insertion.
--- NOTE | 2022-06-09 15:05 | P.PN_ITS ---
Subjective Subjective: No acute events overnight. Has remained hemodynamically stable and afebrile. Plan for PEG tube placement today. We will start diet as per recommendations. Appreciate dietitian recommendations. Vitals/I&O/Wt Last Vital Signs Temp 97.7 F 06/09/22 12:25 Pulse 70 06/09/22 12:25 Resp 18 06/09/22 12:25 BP 136/68 06/09/22 12:25 Pulse Ox 95 06/09/22 12:25 O2 Del Method 06/09/22 12:25 O2 Flow Rate 2 06/06/22 08:23 06/09/22 06/09/22 06/09/22 06:59 14:59 22:59 Intake Total 50 / 2260 550 / 550 Balance 50 / 2260 550 / 550 Physical Exam Const: COMMON NORMALS: patient oriented x3 and alert GENERAL APPEARANCE: c ooperative and diaphoretic HENMT: COMMON NORMALS: oropharynx normal Neck/C-Spine: COMMON NORMALS: no JVD Resp: COMMON NORMALS: clear to auscultation bilaterally AUSCULTATION: clear to auscultation bilaterally Cardio: COMMON NORMALS: no JVD, regular rhythm, S1 normal heart sound present, S2 normal heart sound present and No murmurs present (Cardio) RHYTHM: regular rhythm HEART SOUNDS: S1 normal heart sound present and S2 normal heart sound present GI: COMMON NORMALS: Normal to inspection, nondistended, normoactive bowel sounds present, Soft to palpation and non-tender PALPATION: Yes Soft to palpation Extremity: COMMON NORMALS: no joint enlargement and no pedal edema Neuro: COMMON NORMALS: patient oriented x3 and moves all extremities SENSORIUM/ORIENTATION: Yes alert Skin: COMMON NORMALS: no rashes or lesions noted GENERAL SKIN EXAM: no rashes or lesions noted Data 06/09/22 00:32 06/09/22 00:32 A&P Assessment and plan (1) Aspiration pneumonia: Recurrent aspirations leading to aspiration pneumonia. Leukocytosis resolved. Patient is on room air. Appreciate CT chest, CT neck results. Appreciate modified barium swallow. As per speech evaluation and modified barium swallow patient is at high risk of aspiration with any consistencies given history of laryngeal cancer. Discussed in detail with the patient and patient's at bedside. Discussed to prevent or decrease the risk of aspiration going forward patient should be on dysphagia level 5-6 diet which we would still keep patient on risk of aspiration versus possible PEG tube placement on which risk would be lower. Both verbalized understanding and agreeable. Want to go ahead with PEG tube placement. Plan for PEG tube placement today. Continue with normal saline at 75 cc/h. Patient does have signs of pneumonitis. Less likely pneumonia. For now we will continue with Zosyn. (2) Acute anemia: Acute normocytic anemia without overt bleed recently. Denies hematochezia or melena, no hematuria. Never had endoscopy. Hemoglobin up to 10.6 today. Iron deficiency anemia. Appreciate vitamin B12 folate level. Continue with IV iron supplementation to finish a 5-day course with 200 mg daily for overall 1 g. Continue to monitor hemoglobin daily. (3) History of laryngeal cancer: Plan Please follow-up chronic medication including olanzapine 5 mg twice daily, sertraline and mirtazapine. Hypertension: Goal blood pressure less than 140/90 mmHg. Blood pressure is better. Continue with amlodipine 5 mg twice daily, metoprolol twice daily and losartan 25 mg oral daily. NPO. Start PEG tube feeds as per dietitian recommendation once okay with surgical team. Full code. Protonix for PUD prophylaxis Heparin 5000 every 12 hourly for DVT prophylaxis. Discharge planning: Plan to discharge post PEG tube placement after tube feeds have been started. Again discussed in detail with patient and patient's at bedside further need of PEG tube and all the questions regarding PEG tube were answered. They also had concerns regarding tube feeds post PEG tube placement. All the questions were answered. We will consult dietitian. Attestations Medical Necessity Statement*: Requires further hospitalization for management of recurrent aspiration leading to pneumonitis in a patient with history of laryngeal cancer while PEG tube is placed and feedings are started. Diagnoses Aspiration pneumonia J69.0 Acute anemia D64.9 History of laryngeal cancer Z85.21
--- NOTE | 2022-06-09 15:47 | ANE.PACU2 ---
Inpatient post-anesthesia follow up: Airway intact: Yes Vital signs: Temperature 97.6 F Pulse Rate 68 Respiratory Rate 17 Blood Pressure 110/57 Pulse Oximetry 93 Oxygen Delivery Me thod Room Air Oxygen Flow Rate 2 Fraction of Inspir ed Oxygen Hydration adequate: Yes Nausea and vomiting: No Pain level: 2 Mental status: Baseline
[2022-06-10] VITALS (7 sets, daily range): BP systolic 113–146; BP diastolic 55–83; PULSE 57–89; RESP 16–18; TEMP 36.4–36.7; O2SAT 91–99
[2022-06-10] MEDS: pantoprazole 40 mg SDV IVP ×2 (03:41→13:58)
[2022-06-10] MEDS: heparin 5,000 unit/mL INJ 1 mL 5000 UNIT SUBCUT ×2 (03:42→13:58)
[2022-06-10] MEDS: sodium chloride 0.9% 1,000 ML 75 ML IV ×2 (06:35→19:48)
[2022-06-10] MEDS: piperacillin-tazobactam 3.375 GM in sodium chloride 0.9% (plus) 50 ML IV ×3 (06:40→23:23)
[2022-06-10] MEDS: losartan 50 mg Tablet 25 MG PO (08:42)
[2022-06-10] MEDS: OLANZapine 5 mg TABLET PO ×2 (08:42→17:33)
[2022-06-10] MEDS: amlodipine 5 mg Tablet PO ×2 (08:42→17:33)
[2022-06-10] MEDS: sertraline 100 mg Tablet PO (08:43)
[2022-06-10] MEDS: metoprolol tartrate 25 mg Tablet PO ×2 (08:45→20:21)
[2022-06-10] MEDS: fluticasone nasal spray 16gm Btl 1 SPRAY INTRANASAL (08:47)
--- NOTE | 2022-06-10 11:12 | PC.SOCIAL ---
IMM Updated Updated pt on IMM. No questions voiced. Provided pt a copy. Initialed, dated, & timed copy in chart.
--- NOTE | 2022-06-10 13:21 | P.PN_ITS ---
Subjective Subjective: No acute events overnight. Underwent PEG tube placement yesterday which he tolerated well. Today morning again seen walking around in the hallway. Has remained hemodynamically stable and afebrile. Vitals/I&O/Wt Last Vital Signs Temp 97.8 F 06/10/22 12:00 Pulse 57 L 06/10/22 12:00 Resp 17 06/10/22 12:00 BP 122/55 06/10/22 12:00 Pulse Ox 98 06/10/22 12:00 O2 Del Method 06/10/22 12:00 O2 Flow Rate 2 06/09/22 20:00 06/09/22 06/10/22 06/10/22 22:59 06:59 14:59 Intake Total 1041.25 / 1591.25 1020 / 2611.25 50 / 50 Balance 1041.25 / 1591.25 1020 / 2611.25 50 / 50 Physical Exam Const: COMMON NORMALS: patient oriented x3 and alert GENERAL APPEARANCE: cooperative and diaphoretic HENMT: COMMON NORMALS: oropharynx normal Neck/C-Spine: COMMON NORMALS: no JVD Resp: COMMON NORMALS: clear to auscultation bilaterally AUSCULTATION: clear to auscultation bilaterally Cardio: COMMON NORMALS: no JVD, regular rhythm, S1 normal heart sound present, S2 normal heart sound present and No murmurs present (Cardio) RHYTHM: regular rhythm HEART SOUNDS: S1 normal heart sound present and S2 normal heart sound present GI: COMMON NORMALS: Normal to inspection, nondistended, normoactive bowel sounds present, Soft to palpation and non-tender PALPATION: Yes Soft to palpation Extremity: COMMON NORMALS: no joint enlargement and no pedal edema Neuro: COMMON NORMALS: patient oriented x3 and moves all extremities SENSORIUM/ORIENTATION: Yes alert Skin: COMMON NORMALS: no rashes or lesions noted GENERAL SKIN EXAM: no rashes or lesions noted Data 06/09/22 00:32 06/09/22 00:32 A&P Assessment and plan (1) Aspiration pneumonia: Recurrent aspirations leading to aspiration pneumonia. Leukocytosis resolved. Patient is on room air. Appreciate CT chest, CT neck results. Appreciate modified barium swallow. As per speech evaluation and modified barium swallow patient is at high risk of aspiration with any consistencies given history of laryngeal cancer. Discussed in detail with the patient and patient's at bedside. Discussed to prevent or decrease the risk of aspiration going forward patient should be on dysphagia level 5-6 diet which we would still keep patient on risk of aspiration versus possible PEG tube placement on which risk would be lower. Both verbalized understanding and agreeable. Want to go ahead with PEG tube placement. Plan for PEG tube placement today. Continue with normal saline at 75 cc/h. Patient does have signs of pneumonitis. Less likely pneumonia. For now we will continue with Zosyn. (2) Acute anemia: Acute normocytic anemia without overt bleed recently. Denies hematochezia or melena, no hematuria. Never had endoscopy. Hemoglobin up to 10.6 today. Iron deficiency anemia. Appreciate vitamin B12 folate level. Continue with IV iron supplementation to finish a 5-day course with 200 mg daily for overall 1 g. Continue to monitor hemoglobin daily. (3) History of laryngeal cancer: (4) S/P percutaneous endoscopic gastrostomy (PEG) tube placement: Plan Please follow-up chronic medication including olanzapine 5 mg twice daily, sertraline and mirtazapine. Hypertension: Goal blood pressure less than 140/90 mmHg. Blood pressure is better. Continue with amlodipine 5 mg twice daily, metoprolol twice daily and losartan 25 mg oral daily. NPO. Start PEG tube feeds as per dietitian recommendation once okay with surgical team. Full code. Protonix for PUD prophylaxis Heparin 5000 every 12 hourly for DVT prophylaxis. Plan for the day: Start on tube feeds as per dietitian recommendations. Uptitrate the tube feeds till goals are reached and patient able to tolerate well. Restart all medications through PEG tube. Continue with IV iron. Continue with metoprolol 5 mg twice daily, amlodipine 5 mg twice daily, losartan 25 mg daily to reach goal of blood pressure 140/90 mmHg. Discharge planning: Plan to discharge once he is started on PEG tube feeds and goal is reached and if patient is able to tolerate the PEG tube feeds within next 24 hours. Home with home health. Attestations 2 Medical Necessity Statement*: Requires further hospitalization for management of recurrent aspiration due to aspiration pneumonitis in a patient with history of laryngeal cancer as PEG tube feeds are targeted after PEG tube placement. Diagnoses Aspiration pneumonia J69.0 Acute anemia D64.9 History of laryngeal cancer Z85.21 S/P percutaneous endoscopic gastrostomy (PEG) tube placement Z93.1
[2022-06-10] MEDS: iron sucrose 200 MG in sodium chloride 0.9% (100 ml) 100 ML IV (13:58)
[2022-06-10] MEDS: mirtazapine 15 mg Tablet 7.5 MG PO (20:21)
[2022-06-11] MEDS: pantoprazole 40 mg SDV IVP (01:53)
[2022-06-11] MEDS: heparin 5,000 unit/mL INJ 1 mL 5000 UNIT SUBCUT (01:59)
[2022-06-11 03:14] VITALS: BP 132/74; PULSE 67; RESP 17; TEMP 36.4; O2SAT 94
[2022-06-11 05:08] LABS: Alanine Aminotransferase 13 U/L (0-41); Albumin Level 3.1 g/dL (3.5-5.2); Alkaline Phosphatase 57 U/L (40-130); Anion Gap 12.9 (5-19); Aspartate Amino Transferase 22 U/L (0-40); Blood Urea Nitrogen 15 mg/dL (8-23); Calcium 8.4 mg/dL (8.5-10.5); Carbon Dioxide 27 mmol/L (22-29); Chloride 108 mmol/L (98-107); Globulin 3.1 g/dL (1.3-4.6); Glucose 79 mg/dL (65-115); Osmolality Calculated 298 mOsm/kg (285-295); Potassium 3.9 mmol/L (3.5-5.1); Sodium 144 mmol/L (136-145); Total Bilirubin 0.3 mg/dL (0.15-1.2); Total Protein 6.2 g/dL (6.6-8.7)
[2022-06-11] MEDS: piperacillin-tazobactam 3.375 GM in sodium chloride 0.9% (plus) 50 ML IV (06:08)
[2022-06-11 07:47] VITALS: BP 163/79; PULSE 102; O2SAT 96
--- NOTE | 2022-06-11 10:50 | PM.DCS ---
Discharge Providers Date of Admission: 06/05/22 23:13 Date of Discharge: June 11, 2022 Attending Provider at Admission: Justyn Rivera Attending Provider at Discharge: Cy Gracia MD Primary Care Provider: Caleb Nava MD Diagnoses at Discharge Discharge Diagnosis (1) Aspiration pneumonia: Status: Acute (2) Acute anemia: Status: Acute (3) History of laryngeal cancer: Status: Acute (4) S/P percutaneous endoscopic gastrostomy (PEG) tube placement: Status: Acute Reason for Visit Reason for Visit: CHOKING EPISODE Hospital Course Hospital Course Pleasant 71-year-old gentleman, currently sleeping, somnolent, but does wake up after well, with history of throat cancer with history of resection and reconstruction, reports chemoradiation, came into ER after an episode of choking after eating oatmeal, became diaphoretic and nearly passed out, currently reports feeling better.? Breathing has improved, denies any sensation of foreign body in throat or lungs.? He is not a very good historian, initially did not remember having had cancer, but recalls that after a while.? In ER he was noted newly requiring 2 L of oxygen with saturation down in 80s initially, currently in low 90s on 2 L.? Not normally on oxygen.? He is afebrile, without tachycardia. Noted leukocytosis 14.9. Additionally noted acute anemia 7.9.? She denies having any overt bleeding, no other black stools, no hematochezia, no hematuria.? Infrequent NSAID use.? States never had upper or lower endoscopy. I am not sure how reliable his history is with dementia.? His family is not currently with him, most history obtained from ER staff and documentation. Patient was admitted to [facility] for aspiration pneumonia, overall clinically improved with broad-spectrum antibiotic therapy, discharged on 5 remaining days of Augmentin Patient had significant aspiration concerns, evaluated by speech therapy, which showed evidence of high risk of aspiration with any consistencies given his history of laryngeal cancer, after discussing the risks and benefits, patient agreed for PEG tube placement, PEG tube was placed. His diet was advanced, discharged home with PEG tube feedings For his acute anemia, evidence of iron deficiency anemia, received IV iron during his hospitalization discharged on p.o. iron Physical Exam Const: COMMON NORMALS: no acute distress and patient oriented x3 Resp: COMMON NORMALS: normal respiratory effort, No retractions, No use of accessory muscles and clear to auscultation bilaterally AUSCULTATION: clear to auscultation bilaterally Cardio: COMMON NORMALS: regular rate, regular rhythm, S1 normal heart sound present and S2 normal heart sound present RATE: regular rate RHYTHM: regular rhythm HEART SOUNDS: S1 normal heart sound present and S2 normal heart sound present GI: COMMON NORMALS: Normal to inspection, nondistended, normoactive bowel sounds present and non-tender OTHER: PEG tube in place Extremity: COMMON NORMALS: no pedal edema Neuro: COMMON NORMALS: patient oriented x3 Psych: COMMON NORMALS: mental status grossly normal Discharge Data Studies Completed and Pending Completed Studies During Hospitalization Category Date Time Status CT chest wo con [id number] Routine Cat Scan 06/06/22 11:[address] neck wo con [id number] Routine Cat Scan 06/06/22 11:08 Completed CXRP [XR chest 1V portable [id number]] Stat Exams 06/05/22 21:19 Completed Modified barium swallow [FL barium swallow modifd [id number] Exams 06/06/22 11:08 Completed ] Routine Pending at discharge Category Date Time Status Occult Blood Stool [Immunochemical Fecal OCB] Routine Lab 06/06/22 02:10 Uncollected Radiology Impressions Chest X-Ray 06/05/22 21:19 IMPRESSION: Minimal left lower lobe atelectasis versus early infiltrate. Chest CT 06/06/22 11:08 IMPRESSION: 1. Patchy ground-glass opacities in the chest bilaterally suspicious for developing pneumonia. 2. Solid pulmonary nodules measuring up to 8.4 mm. As per Fleischner Society 2017 guidelines for follow-up and management of pulmonary nodules: For patients at low risk (minimal or absent history of smoking and of other known risk factors), recommend CT at 3-6 months, then consider CT at 18-24 months. For patient at high risk (history of smoking or of other known risk factors), recommend CT at 3-6 months, then CT at 18-24 months. 3. The common bile duct appears dilated measuring up to 8.5 mm. Recommend ultrasound to further assess.The common bile duct appears dilated measuring up to 8.5 mm. Recommend ultrasound to further assess. 4. Mild mediastinal lymphadenopathy. 5. Coronary artery disease. Modified Barium Swallow 06/06/22 11:08 IMPRESSION: 1. Penetration with a small amount of aspiration with thin liquids and honey consistencies. 2. No aspiration with the pudding consistency Neck CT 06/06/22 11:08 IMPRESSION: No compromise of the airway. Fullness along the posterior wall of the nasopharynx may be due to retained secretions rather than soft tissue mass, incompletely evaluated on this noncontrast exam. Postsurgical changes after right partial mandibulectomy with no reconstructive surgery with no flap reconstruction. Sharply-circumscribed lytic focus in the right side of the residual mandible may be odontogenic in nature associated with periapical granuloma in the right 1st mandibular premolar tooth. Linear soft tissue fullness along the right lateral inferior wall of the oropharynx adjacent to the resection margin of the mandible has to be compared with prior exams to discuss benign postsurgical finding versus recurrent malignancy. A single borderline prominent in size left submental lymph node is indeterminate and may be benign or malignant in nature. 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 Laboratory Results WBC 10.9 10^3/uL (4.0-10.0) H 06/09/22 00:32 RBC 3.28 10^6/uL (4.1-5.3) L 06/09/22 00:32 Hgb 10.0 g/dL (11.7-16.6) L 06/09/22 00:32 Hct 31.6 % (42.0-52.0) L 06/09/22 00:32 MCV 96.3 fl (80-94) H 06/09/22 00:32 MCH 30.5 pg (28.0-34.0) 06/09/22 00:32 MCHC 31.6 g/dL (30.0-36.0) 06/09/22 00:32 RDW 13.2 % (12.1-15.1) 06/09/22 00:32 Plt Count 322 10^3/cmm (130-400) 06/09/22 00:32 MPV 8.7 fL (7.4-10.4) 06/09/22 00:32 Neut % (Auto) 83.8 % 06/09/22 00:32 Lymph % (Auto) 7.2 % 06/09/22 00:32 [place] % (Auto) 6.3 % 06/09/22 00:32 Eos % (Auto) 1.8 % 06/09/22 00:32 Baso % (Auto) 0.5 % 06/09/22 00:32 Neut # (Auto) 9.13 10^3/uL (1.8-7.7) H 06/09/22 00:32 Lymph # (Auto) 0.8 10^3/uL (0.8-4.8) 06/09/22 00:32 [place] # (Auto) 0.7 10^3/uL (0.2-0.9) 06/09/22 00:32 Eos # (Auto) 0.2 10^3/uL (0.0-0.8) 06/09/22 00:32 Baso # (Auto) 0.1 10^3/uL (0.0-0.1) 06/09/22 00:32 Nucleated RBC % (auto) 0 % 06/09/22 00:32 Nucleated RBCs # 0.0 /100WBC 06/09/22 00:32 D-Dimer 3.03 ug/mIFEU (0-0.59) H 06/06/22 11:38 Sodium 144 mmol/L (136-145) 06/11/22 04:38 Potassium 3.9 mmol/L (3.5-5.1) 06/11/22 04:38 Chloride 108 mmol/L (98-107) H 06/11/22 04:38 Carbon Dioxide 27 mmol/L (22-29) 06/11/22 04:38 Anion Gap 12.9 (5-19) 06/11/22 04:38 BUN 15 mg/dL (8-23) 06/11/22 04:38 Creatinine 0.6 mg/dL (0.7-1.2) L 06/11/22 04:38 GFR Calculation Not Reportable 06/11/22 04:38 Glucose 79 mg/dL (65-115) 06/11/22 04:38 Calculated Osmolality 298 mOsm/kg (285-295) H 06/11/22 04:38 Calcium 8.4 mg/dL (8.5-10.5) L 06/11/22 04:38 Iron 19 ug/dL (59-158) L 06/05/22 22:16 TIBC 246 mcg/dl 06/05/22 22:16 % Saturation 7.7 % (20-50) L 06/05/22 22:16 Unsat Iron Binding 227 ug/dL (112-347) 06/05/22 22:16 Ferritin 110 ng/mL (30-400) 06/05/22 22:16 Total Bilirubin 0.3 mg/dL (0.15-1.2) 06/11/22 04:38 AST 22 U/L (0-40) 06/11/22 04:38 ALT 13 U/L (0-41) 06/11/22 04:38 Alkaline Phosphatase 57 U/L (40-130) 06/11/22 04:38 NT-Pro-B Natriuret Pep 479 pg/mL (0-125) H 06/05/22 22:16 Total Protein 6.2 g/dL (6.6-8.7) L 06/11/22 04:38 Albumin 3.1 g/dL (3.5-5.2) L 06/11/22 04:38 Globulin 3.1 g/dL (1.3-4.6) 06/11/22 04:38 Vitamin B12 660 pg/mL (232-1245) 06/05/22 22:16 Folate 15.2 ng/mL (4.5-32.2) 06/05/22 22:16 TSH 2.51 uIU/mL (0.27-4.20) 06/05/22 22:16 Blood Type AB Positive 06/05/22 23:29 Rho(D) Type Positive 06/05/22 23:29 Antibody Screen Negative 06/05/22 23:29 Vitals Last Vital Signs Temp 97.6 F 06/11/22 03:14 Pulse 102 H 06/11/22 07:47 Resp 17 06/11/22 03:14 BP 163/79 06/11/22 07:47 Pulse Ox 96 06/11/22 07:47 O2 Del Method 06/11/22 03:14 O2 Flow Rate 2 06/09/22 20:00 Discharge Plan Discharge Patient Disposition: Home Health Service Condition: Stable Prescriptions: New losartan 50 mg Tablet 25 mg PO DAILY 30 Days Qty: 15 0RF amoxicillin-pot clavulanate 875-125 mg tablet 1 tab PO BID 5 Days Qty: 10 0RF pantoprazole [Protonix] 40 mg tablet,delayed release (DR/EC) 40 mg PO DAILY 30 Days Qty: 30 0RF Continued sertraline 100 mg tablet 100 mg PO DAILY amlodipine 5 mg tablet 5 mg PO BID levothyroxine 100 mcg tablet 100 mcg PO DAILY fluticasone propionate 50 mcg/actuation spray,suspension 1 spray INTRANASAL DAILY metoprolol tartrate 25 mg tablet 25 mg PO BID mirtazapine 7.5 mg tablet 7.5 mg PO BEDTIME olanzapine 5 mg Tablet 5 mg PO BID Discharge Orders: Discharge Order (Routine); Ordered 06/11/22 Ordered By: Cy Gracia Referrals: [facility] ([facility]) [Outside] Caleb Nava MD [Primary Care Provider] - 1-3 days Discharge Diet: Advance as tolerated Discharge Activity: Resume usual activity Patient Instructions: GI Discharge Instructions, Opioid Safety Activity Restrictions/Additional Instructions: -Please take antibiotics as prescribed -Please follow-up with your primary care provider -PEG tube feedings are below Jevity 1.2 With 60 cc free water flush before and after feedings 8 AM: 120 cc day 1, with a goal of 240 cc as tolerated Noon: 120 cc day 1, with goal of 240 cc as tolerated 4 PM: 120 cc day 1, with goal of 240 cc as tolerated 8 PM: 120 cc day 1, with goal of 480 cc as tolerated Discharge Attestations Time Spent in Discharge Care*: greater than 30 min Quality Metrics Clinical Quality Measures [ No reported AMI, CVA or VTE this stay] Coding Level of Care Code 85486 Total time (in minutes) for Discharge: 40 Diagnoses Aspiration pneumonia J69.0 Acute anemia D64.9 History of laryngeal cancer Z85.21 S/P percutaneous endoscopic gastrostomy (PEG) tube placement Z93.1
[2022-06-11 11:32] VITALS: BP 160/75; PULSE 92; RESP 17; O2SAT 95
[2022-06-11] MEDS: metoprolol tartrate 25 mg Tablet PO (11:39)
[2022-06-11] MEDS: sertraline 100 mg Tablet PO (11:39)
[2022-06-11] MEDS: OLANZapine 5 mg TABLET PO (11:39)
[2022-06-11 11:40] VITALS: BP 160/75
[2022-06-11] MEDS: losartan 50 mg Tablet 25 MG PO (11:40)
[2022-06-11] MEDS: amlodipine 5 mg Tablet PO (11:41)
[2022-06-11] MEDS: fluticasone nasal spray 16gm Btl 1 SPRAY INTRANASAL (11:45)
[2022-06-11 14:30] VITALS: BP 160/75
== END 2022-06-11 14:50 | disposition home health service (06) | DRG 179 ==
LOC: ER 23:15 → MEDSURG 23:29
PROVIDERS: Student in an Organized Health Care Education/Training Program; Surgery; Admitting Provider Internal Medicine; Emergency Provider Emergency Medicine; PCP Pediatrics; Visit Provider Family Medicine
PROC: 0DH63UZ Insertion of Feeding Device into Stomach, Percutaneous Approach (ICD-10-PCS; CPT 43246; principal; 2022-06-09 12:00)
DX: J69.0 Pneumonitis due to inhalation of food and vomit (principal); D50.9 Iron deficiency anemia, unspecified; F03.90 Unspecified dementia, unspecified severity, without behavioral disturbance, psychotic disturbance, mood disturbance, and anxiety; E03.9 Hypothyroidism, unspecified; I10 Essential (primary) hypertension; R13.10 Dysphagia, unspecified; R59.0 Localized enlarged lymph nodes; M89.9 Disorder of bone, unspecified; S04.891 Injury of other cranial nerves, right side; Y83.8 Other surgical procedures as the cause of abnormal reaction of the patient, or of later complication, without mention of misadventure at the time of the procedure; Z85.21 Personal history of malignant neoplasm of larynx; Z79.899 Other long term (current) drug therapy; Z92.3 Personal history of irradiation; Z92.21 Personal history of antineoplastic chemotherapy
CPT/HCPCS: 36415; 70490; 71045; 71250; 74230; 80053; 82607; 82728; 82746; 83540; 83550; 83880; 84443; 85025; 85378; 86850; 86900; 87040; 92523; 92526; 92610; 92611; 94640; 94664; 94669; 96365; 96367; 96372; 99285; C9113; J1644; J1756; J2543; J2704; J3370; J3490; J7030; J7050

== ENCOUNTER → 2022-10-01 13:39 | Outpatient (BNVA) | payer MEDICARE, BC, SELFPAY | PROVIDERS: PCP Pediatrics; Visit Provider Surgery | DX: K94.23 Gastrostomy malfunction (principal); L92.9 Granulomatous disorder of the skin and subcutaneous tissue, unspecified | CPT/HCPCS: 99214 ==

== ENCOUNTER → 2022-11-20 10:17 | Outpatient (BNVA) | payer MEDICARE, BC, SELFPAY | PROVIDERS: PCP Pediatrics; Visit Provider Surgery | DX: K94.23 Gastrostomy malfunction (principal); L92.9 Granulomatous disorder of the skin and subcutaneous tissue, unspecified | CPT/HCPCS: 99214 ==

== ENCOUNTER → 2022-12-04 10:28 | Outpatient (BNVA) | payer MEDICARE, BC, SELFPAY | PROVIDERS: PCP Pediatrics; Visit Provider Surgery | DX: K94.23 Gastrostomy malfunction (principal) | CPT/HCPCS: 43762; 99214 ==